=== PATIENT | female | born 1965 | race Caucasian/White ===

== ENCOUNTER 2017-10-04 14:49 | Emergency (ER) | payer OTHER ==
[2012-03-05 11:37] VITALS: BP 168/75
--- NOTE | 2017-10-04 16:04 | ERPHSYRPT ---
- History of Present Illness Time Seen by Provider: 10/04/17 16:04 Source: patient, family Exam Limitations: no limitations Patient Subjective Stated Complaint: cough for three weeks and shortness of breath for one week. Triage Nursing Assessment: to room per self. skin w/d, color normal, resp slightly labored. occasional dry cough noted. diminshed breath sounds right posterior base. Physician History: The patient is a 52-year-old female with her complaining of a cough for at least 3 weeks and now shortness of breath for the last week. She has been taking Ventolin without relief. She is a smoker but has not smoked cigarettes in the last 2 days. She has not seen a doctor yet but is tired of being sick. She denies fever. She is tired. Her past medical history is significant for COPD. Timing/Duration: week(s) (3), gradual onset, worse Cough Quality/Degree: moderate Possible Cause: occasional episodes, smoke exposure Modifying Factors: Improves With: albuterol inhaler Associated Symptoms: cough, shortness of breath Allergies/Adverse Reactions: cyclobenzaprine [From Flexeril] Allergy (Verified 10/04/17 15:06) gabapentin [From Neurontin] Allergy (Verified 10/04/17 15:06) tramadol [From Ultram] Allergy (Verified 10/04/17 15:06) Home Medications: HydrALAzine HCL 25 MG TAB [Apresoline 25 MG TABLET] 50 mg PO TID 08/07/16 [History] Hx Tetanus, Diphtheria Vaccination/Date Given: No Hx Influenza Vaccination/Date Given: No Hx Pneumococcal Vaccination/Date Given: No Immunizations Up to Date: No - Review of Systems Constitutional: No Fever, No Chills Eyes: No Symptoms Ears, Nose, & Throat: No Symptoms Respiratory: Cough, Dyspnea on Exertion (LU) Cardiac: No Chest Pain, No Edema, No Syncope Abdominal/Gastrointestinal: No Abdominal Pain, No Nausea, No Vomiting, No Diarrhea Genitourinary Symptoms: No Dysuria Musculoskeletal: No Back Pain, No Neck Pain Skin: No Rash Neurological: No Dizziness, No Focal Weakness, No Sensory Changes Psychological: No Symptoms Endocrine: No Symptoms Hematologic/Lymphatic: No Symptoms Immunological/Allergic: No Symptoms All Other Systems: Reviewed and Negative - Past Medical History Pertinent Past Medical History: Yes Cardiac History: Hypertension Musculoskeletal History: Arthritis - Past Surgical History Past Surgical History: Yes Gastrointestinal: Cholecystectomy Female Surgical History: Section, Other - Social History Smoking Status: Current every day smoker How long have you smoked: 37 Exposure to second hand smoke: Yes Drug Use: none Patient Lives Alone: No - Female History Hx Now: No - Nursing Vital Signs Nursing Vital Signs: Initial Vital Signs Temperature 98.6 F 10/04/17 14:56 Pulse Rate 91 H 10/04/17 14:56 Respiratory Rate 18 10/04/17 14:56 O2 Sat by Pulse Oximetry 95 10/04/17 14:56 Pain Scale Pain Intensity 6 - Physical Exam General Appearance: no apparent distress, alert Eye Exam: PERRL/EOMI, eyes nml inspection Ears, Nose, Throat Exam: normal ENT inspection, TMs normal, pharynx normal, moist mucous membranes Neck Exam: normal inspection, non-tender, supple, full range of motion Respiratory Exam: diminished breath sounds, prolonged expirations, wheezing ( mild) Cardiovascular Exam: regular rate/rhythm, normal heart sounds Gastrointestinal/Abdomen Exam: soft, No tenderness Pelvic Exam: not done Rectal Exam: not done Back Exam: normal inspection, No CVA tenderness, No vertebral tenderness Extremity Exam: normal inspection, normal range of motion Neurologic Exam: alert, oriented x 3, cooperative, normal mood/affect, sensation nml, No motor deficits Skin Exam: normal color, warm, dry, No rash Lymphatic Exam: No adenopathy SpO2 Interpretation: normal SpO2: 95 Oxygen Delivery: Room Air - Radiology Exams Chest X-ray Interpretation: Interpreted by me, Infiltrates (focal infiltrate in right mid lung and in posterior sulcus on lateral view.) Ordered Tests: Active Orders 24 hr Category Date Time Status CHEST 2 VIEWS (PA AND LAT) Stat Exams 10/04/17 17:35 Taken Respiratory Nebulizer STAT RT 10/04/17 16:07 Completed Transfer Order Routine Transfer 10/04/17 Ordered Medication Summary Discontinued Medications Generic Name Dose Route Start Last Admin Trade Name Freq PRN Reason Stop Dose Admin Albuterol/Ipratropium 3 ml 10/04/17 16:06 10/04/17 16:20 Duoneb 0.5-3 Mg/3 Ml Neb IH 10/04/17 16:07 3 ml STAT ONE Administration Albuterol/Ipratropium Confirm 10/04/17 16:17 Duoneb 0.5-3 Mg/3 Ml Neb Administered 10/04/17 16:18 Dose 3 ml IH .STK-MED ONE Ceftriaxone Sodium 1,000 mg 10/04/17 16:05 10/04/17 16:33 Rocephin 1000 Mg Inj IM 10/04/17 16:06 1,000 mg STAT ONE Administration Ceftriaxone Sodium Confirm 10/04/17 16:28 Rocephin 1000 Mg Inj Administered 10/04/17 16:29 Dose 1,000 mg .ROUTE .STK-MED ONE Dexamethasone Sodium Phosphate 10 mg 10/04/17 16:06 10/04/17 16:33 Decadron 10mg Inj. IM 10/04/17 16:07 10 mg STAT ONE Administration Dexamethasone Sodium Phosphate Confirm 10/04/17 16:29 Decadron 10mg Inj. Administered 10/04/17 16:30 Dose 10 mg .ROUTE .STK-MED ONE Lidocaine HCl Confirm 10/04/17 16:29 Xylocaine 1% Hcl 20 Ml Mdv Administered 10/04/17 16:30 Dose 3 ml .ROUTE .STK-MED ONE - Progress Progress: improved Counseled pt/family regarding: lab results, diagnosis, need for follow-up, rad results - Departure Time of Disposition: 17:49 Departure Disposition: Home Clinical Impression: Pneumonia Condition: Stable Critical Care Time: No Referrals: TRACY PRESLEY [Primary Care Provider] - Additional Instructions: You have focal pneumonia in your right mid lung and in the lower part of your lungs. You were given a DuoNeb treatment, Rocephin 1 g by IM, and Decadron 10 mg by IM in the ER. Continue with azithromycin 500 mg today followed by 250 mg for 4 more days also take prednisone 60 mg daily for 5 days.. Follow-up with your primary care doctor in 1-2 days. Prescriptions: Azithromycin 250 mg [Zithromax 250 MG TABLET] 250 mg PO ZPACK #6 tablet Prednisone 20 mg [Deltasone 20 mg] 3 tab PO DAILY #15 tablet
[2017-10-04] MEDS ORDERED: DUONEB 0.5-3 MG/3 ml Neb IH ONE (16:17)
[2017-10-04] MEDS: DUONEB 0.5-3 MG/3 ml Neb IH ONE (16:20)
[2017-10-04] MEDS ORDERED: Rocephin 1000 MG INJ ONE (16:28)
[2017-10-04] MEDS ORDERED: XYLOCAINE 1% HCL 20 ML MDV ONE (16:29)
[2017-10-04] MEDS ORDERED: DECADRON 10MG INJ. ONE (16:29)
[2017-10-04] MEDS: DECADRON 10MG INJ. IM ONE (16:33)
[2017-10-04] MEDS: Rocephin 1000 MG INJ IM ONE (16:33)
[2017-10-04 17:55] VITALS: BP 220/104; PULSE 95; O2SAT 83
--- NOTE | 2017-10-05 08:41 | XRAY ---
Indication: Cough 1 month. Fever and short of breath. Comparison: None PA/lateral chest hyperinflated with mild left base infiltrate/atelectasis, mild bilateral interstitial edema, and small bibasilar effusions. 3 cm right midlung masslike opacity. Heart is not enlarged. Vascularity normal. Bony thorax intact. Impression: 1. Left base infiltrate/atelectasis. Correlate clinically. 2. Mild interstitial edema and small bibasilar effusions without cardiomegaly. 3. Right midlung masslike opacity. CT chest may yield further information. Comment: Case was discussed with interpreting ER clinician Dr. Turcios at 0835 hrs. on October 05, 2017.
== END 2017-10-04 18:14 | disposition home or self-care (01) ==
LOC: ED 14:49
DX: J18.9 Pneumonia, unspecified organism (principal); I10 Essential (primary) hypertension; J44.9 Chronic obstructive pulmonary disease, unspecified; M19.90 Unspecified osteoarthritis, unspecified site; Z72.0 Tobacco use
CPT/HCPCS: 71046; 94640; 96372; 99284; J0696; J1100; A9270-GY

== ENCOUNTER 2017-10-11 11:29 | Observation (INO) | payer SELFPAY ==
[2017-10-11] MEDS ORDERED: Lasix 40 MG/4 ML IV ONE (11:56)
--- NOTE | 2017-10-11 11:57 | ERPHSYRPT ---
- History of Present Illness Time Seen by Provider: 10/11/17 11:51 Source: patient Exam Limitations: no limitations Patient Subjective Stated Complaint: states she was seen and treated in ER last week for pneumonia nad now shes very swollen and short of breath and quick care sent her back down to us Triage Nursing Assessment: pt is alert and oreitnedx3, lung sounds diminished, pt has 2+ edema bilateral lower legs and says her weight has increased 20 lbs. skin warm dry and intact, swelling in cheeks and face. Physician History: The patient is a 52-year-old female with her complaining of increasing shortness of breath and swelling in her lower legs for the past 3 or 4 days. She is unable to sleep flat on her back because of shortness of breath. I saw this patient on 10/04/17 for shortness of breath. At the last visit the patient was found to have pneumonia. She was treated with Rocephin and azithromycin. Because of her COPD the patient was also given prednisone 60 mg for 5 days. She states she was back to her normal self after 3 days or so of the treatment. Now she states that she has gained maybe up to 20 pounds of weight recently. Her past medical history is significant for COPD and pneumonia. Timing/Duration: day(s) (3), gradual onset, worse Activities at Onset: none Severity of Dyspnea-Max: moderate Severity of Dyspnea-Current: moderate Possible Cause: occasional episodes, smoke exposure Modifying Factors: Improves With: other (lying flat in bed makes it worse.) Associated Symptoms: ankle swelling Allergies/Adverse Reactions: cyclobenzaprine [From Flexeril] Allergy (Verified 10/04/17 15:06) gabapentin [From Neurontin] Allergy (Verified 10/04/17 15:06) tramadol [From Ultram] Allergy (Verified 10/04/17 15:06) Home Medications: HydrALAzine HCL 25 MG TAB [Apresoline 25 MG TABLET] 50 mg PO TID 08/07/16 [History] Hx Tetanus, Diphtheria Vaccination/Date Given: Yes Hx Influenza Vaccination/Date Given: No Hx Pneumococcal Vaccination/Date Given: No Immunizations Up to Date: Yes - Review of Systems Constitutional: No Fever, No Chills Eyes: No Symptoms Ears, Nose, & Throat: No Symptoms Respiratory: Dyspnea, Dyspnea on Exertion (LU), No Cough Cardiac: No Chest Pain, No Edema, No Syncope Abdominal/Gastrointestinal: No Abdominal Pain, No Nausea, No Vomiting, No Diarrhea Genitourinary Symptoms: No Dysuria Musculoskeletal: No Back Pain, No Neck Pain Skin: No Rash Neurological: No Dizziness, No Focal Weakness, No Sensory Changes Psychological: No Symptoms Endocrine: No Symptoms Hematologic/Lymphatic: No Symptoms Immunological/Allergic: No Symptoms All Other Systems: Reviewed and Negative - Past Medical History Pertinent Past Medical History: Yes Cardiac History: Hypertension Musculoskeletal History: Arthritis - Past Surgical History Past Surgical History: Yes Gastrointestinal: Cholecystectomy Female Surgical History: Section, Other - Social History Smoking Status: Current every day smoker How long have you smoked: 37 Exposure to second hand smoke: Yes Drug Use: none Patient Lives Alone: No - Female History Hx Now: No - Nursing Vital Signs Nursing Vital Signs: Initial Vital Signs Temperature 97.9 F 10/11/17 11:29 Pulse Rate 61 10/11/17 11:29 Respiratory Rate 20 10/11/17 11:29 Blood Pressure 233/103 10/11/17 11:29 O2 Sat by Pulse Oximetry 99 10/11/17 11:29 Pain Scale Pain Intensity 0 - Physical Exam General Appearance: mild distress Eye Exam: PERRL/EOMI Ears, Nose, Throat Exam: hearing grossly normal Neck Exam: normal inspection, supple Respiratory Exam: normal breath sounds Cardiovascular/Chest Exam: normal heart sounds, regular rate/rhythm Abdominal/Gastrointestinal Exam: soft, No tenderness, No distention, No mass Rectal Exam: not done Extremity Exam: pedal edema (moderate edema from ankles to knee bilaterally.) Neurologic Exam: alert, oriented x 3, cooperative, room designer II-XII nml as tested, sensation nml, No motor deficits Skin Exam: normal color, warm, No dry SpO2 Interpretation: normal SpO2: 96 Oxygen Delivery: Room Air - Course EKG Interpreted by Me: RATE, Sinus Rhythm, NORMAL AXIS, NORMAL INTERVALS, Other (likely LV hypertrophy,) - CT Exams Chest CT Interpretation: Tele-radiologist Report, Other (irreglar spiculated calcified in monor fissure worrsisome for malignancy. Moderaated bilateral pleural effusions. Per Dr Arredondo.) Ordered Tests: Active Orders 24 hr Category Date Time Status EKG-ER Only STAT Care 10/11/17 11:56 Active IV Insertion STAT Care 10/11/17 11:56 Active Pulse Oximetry (ED) STAT Care 10/11/17 11:56 Active CHEST WITHOUT CONTRAST [CT] Stat Exams 10/11/17 11:56 Completed CBC W DIFF Stat Lab 10/11/17 12:05 Completed CMP Stat Lab 10/11/17 12:05 Completed Lactic Acid Stat Lab 10/11/17 12:14 Completed Manual Differential NC Stat Lab 10/11/17 12:05 Completed NT PRO BNP Stat Lab 10/11/17 12:05 Completed TROPONIN Q3H Lab 10/11/17 12:10 Completed TROPONIN Q3H Lab 10/11/17 15:00 Ordered TROPONIN Q3H Lab 10/11/17 18:00 Ordered TROPONIN Q3H Lab 10/11/17 21:00 Ordered TROPONIN Q3H Lab 10/12/17 00:00 Ordered Medication Summary Discontinued Medications Generic Name Dose Route Start Last Admin Trade Name Freq PRN Reason Stop Dose Admin Furosemide 40 mg 10/11/17 11:56 10/11/17 12:33 Lasix 40 Mg/4 Ml IV 10/11/17 11:57 40 mg STAT ONE Administration Furosemide Confirm 10/11/17 12:16 Lasix 40 Mg/4 Ml Administered 10/11/17 12:17 Dose 40 mg .ROUTE .STK-MED ONE Metoprolol Tartrate 5 mg 10/11/17 13:59 10/11/17 14:03 Lopressor 5 Mg/5 Ml Injection IV 10/11/17 14:00 5 mg STAT ONE Administration Metoprolol Tartrate Confirm 10/11/17 14:02 Lopressor 5 Mg/5 Ml Injection Administered 10/11/17 14:03 Dose 5 mg IV .STK-MED ONE Potassium Chloride 40 meq 10/11/17 12:47 10/11/17 13:15 Klor Con 10 Meq PO 10/11/17 12:48 40 meq STAT ONE Administration Potassium Chloride Confirm 10/11/17 13:14 Klor Con 10 Meq Administered 10/11/17 13:15 Dose 40 meq PO .STK-MED ONE Lab/Rad Data: Laboratory Result Diagrams 10/11/17 12:05 10/11/17 12:05 Laboratory Results 10/11/17 10/11/17 10/11/17 Range/Units 12:14 12:10 12:05 WBC (4.0-10.5) K/mm3 RBC (4.1-5.4) M/mm3 Hgb (12.0-16.0) gm/dl Hct (35-47) % MCV (78-100) fl MCH (26-32) pg MCHC (32-36) g/dl RDW (11.5-14.0) % Plt Count (150-450) K/mm3 MPV (6-9.5) fl Absolute Granulocytes (1.4-6.9) Sodium 139 (137-145) mmol/L Potassium 3.0 L (3.5-5.1) mmol/L Chloride 101 (98-107) mmol/L Carbon Dioxide 29 (22-30) mmol/L Anion Gap 12.7 (5-15) MEQ/L BUN 28 H (7-17) mg/dL Creatinine 1.57 H (0.52-1.04) mg/dL Estimated GFR 36.5 ML/MIN Glucose 92 (74-106) mg/dL Lactic Acid 1.4 (0.4-2.0) Calcium 9.1 (8.4-10.2) mg/dL Total Bilirubin 0.60 (0.2-1.3) mg/dL AST 28 (14-36) U/L ALT 46 H (0-35) U/L Alkaline Phosphatase 93 (38-126) U/L Troponin I 0.053 H* (0.000-0.034) ng/mL NT-Pro-B Natriuret Pep 95012 H (0-900) pg/mL Serum Total Protein 7.1 (6.3-8.2) g/dL Albumin 4.0 (3.5-5.0) g/dL 18 Range/Units 12:05 WBC 15.8 H (4.0-10.5) K/mm3 RBC 3.72 L (4.1-5.4) M/mm3 Hgb 12.9 (12.0-16.0) gm/dl Hct 39.4 (35-47) % MCV 105.9 H (78-100) fl MCH 34.6 H (26-32) pg MCHC 32.7 (32-36) g/dl RDW 14.2 H (11.5-14.0) % Plt Count 391 (150-450) K/mm3 MPV 10.4 H (6-9.5) fl Absolute Granulocytes 12.33 H (1.4-6.9) Sodium (137-145) mmol/L Potassium (3.5-5.1) mmol/L Chloride (98-107) mmol/L Carbon Dioxide (22-30) mmol/L Anion Gap (5-15) MEQ/L BUN (7-17) mg/dL Creatinine (0.52-1.04) mg/dL Estimated GFR ML/MIN Glucose (74-106) mg/dL Lactic Acid (0.4-2.0) Calcium (8.4-10.2) mg/dL Total Bilirubin (0.2-1.3) mg/dL AST (14-36) U/L ALT (0-35) U/L Alkaline Phosphatase (38-126) U/L Troponin I (0.000-0.034) ng/mL NT-Pro-B Natriuret Pep (0-900) pg/mL Serum Total Protein (6.3-8.2) g/dL Albumin (3.5-5.0) g/dL - Progress Progress: improved Air Movement: good Progress Note: 10/11/17 12:[address] today. Saw possible mass in right mid lung in CXR. Blood Culture(s) Obtained: No Antibiotics given: No Discussed with : Alek Will see patient in: hospital (observation) Counseled pt/family regarding: lab results, diagnosis, need for follow-up, rad results - Departure Time of Disposition: 14:31 Departure Disposition: Observation (Per Dr Gaston for Dr Emeli Presley.) Clinical Impression: CHF (congestive heart failure), Hypokalemia, Hypertension, Renal failure, Lung mass, Elevated troponin Condition: Stable Critical Care Time: No Referrals: TRACY PRESLEY [Primary Care Provider] - Instructions: Heart Failure
[2017-10-11] MEDS ORDERED: Lasix 40 MG/4 ML ONE (12:16)
[2017-10-11 12:25] LABS: Granulocyte Absolute (ANC) 12.33 (1.4-6.9); Hematocrit 39.4 % (35-47); Hemoglobin 12.9 gm/dl (12.0-16.0); Mean Cell Volume 105.9 fl (78-100); Mean Corpuscular Hgb Concent. 32.7 g/dl (32-36); Mean Platelet Volume 10.4 fl (6-9.5); Platelet Count 391 K/mm3 (150-450); Red Blood Count 3.72 M/mm3 (4.1-5.4); Red Cell Distribution Width 14.2 % (11.5-14.0); White Blood Count 15.8 K/mm3 (4.0-10.5)
[2017-10-11 12:39] LABS: ANION GAP 12.7 MEQ/L (5-15); BILIRUBIN,TOTAL 0.6 mg/dL (0.2-1.3); Calcium 9.1 mg/dL (8.4-10.2); Creatinine 1 1.57 mg/dL (0.52-1.04); Total Protein 7.1 g/dL (6.3-8.2)
[2017-10-11 12:43] LABS: Mean Corpuscular Hemoglobin 34.6 pg (26-32)
[2017-10-11] MEDS ORDERED: Klor Con 10 MEQ PO ONE ×2 (12:47→13:14)
--- NOTE | 2017-10-11 13:04 | XRAY ---
Indication: Short of breath 1.5 weeks. Chest heaviness. Abnormal chest radiograph October 04, 2017. Multiple contiguous axial images obtained through the chest without contrast as ordered. Comparison: October 04, 2017. Lungs inflated with mild diffuse pulmonary emphysema. There is irregular calcified mass in the minor fissure measuring 2.6 x 2.5 x 1.9 cm with spiculated margins. This corresponds to the chest radiograph finding and worrisome for malignancy. Subtle lingular reticular nodular opacities. Moderate bilateral pleural effusions with moderate bibasilar compressive atelectasis, right greater than left. Heart is not enlarged. A few slightly prominent mediastinal lymph nodes, largest AP window measuring 1.2 x 2.0 cm. [place] subcarinal and smaller mediastinal calcified lymph nodes. Bony thorax intact with minimal degenerative changes throughout the spine. Limited upper abdomen demonstrates calcified splenic granuloma. Impression: 1. Irregular spiculated calcified mass in the minor fissure as detailed corresponding to the recent chest radiograph finding worrisome for primary versus metastatic malignancy. Slightly prominent mediastinal nodes may or may not be related. PET CT may yield further information. 2. Indeterminate moderate bilateral pleural effusions without cardiomegaly. Consider diagnostic thoracentesis. 3. Evidence for old granulomatous disease. CTDI 16.92
[2017-10-11] MEDS ORDERED: LOPRESSOR 5 MG/5 ML INJECTION IV ONE ×2 (13:59→14:02)
[2017-10-11 15:00] LABS: Appearance CLEAR (CLEAR); Specific Gravity 1.005 (1.005-1.025)
[2017-10-11 15:01] LABS: Bacteria RARE /HPF (NEGATIVE); Bilirubin NEGATIVE (NEGATIVE); Blood NEGATIVE Ery/ul (0-5); Epithelial Cells RARE /HPF (FEW); Glucose NEGATIVE (NEGATIVE); Ketones NEGATIVE (NEGATIVE); Leukocyte Esterase NEGATIVE (NEGATIVE); Nitrite NEGATIVE (NEGATIVE); Protein,Urine Dip 50 (Negative); RBC 0-2 /HPF (0-2); Urobilinogen NORMAL mg/dL (0-1)
[2017-10-11] MEDS ORDERED: TYLENOL 325 MG PO PRN (15:18)
[2017-10-11] MEDS ORDERED: Zofran 4 MG/2 ML VIAL IV PRN (15:18)
[2017-10-11 16:07] LABS: ANISOCYTOSIS 1+; BAND 1 % (0.0-2.0); Eosinophil 2 % (0.00-3.0); Lymphocytes 23 % (24-44); Monocyte 7 % (0.0-12.0); Neutrophils 67 % (36.0-66.0); Platelet Estimate NORMAL (NORMAL); Total Cells Counted 100
[2017-10-11] MEDS: Lasix 40 MG/4 ML IV SCH (16:44)
[2017-10-11] MEDS: ENOXAPARIN SODIUM SQ SCH (16:44)
[2017-10-11] MEDS: Lotensin 10 MG PO SCH (16:45)
[2017-10-11] MEDS: Apresoline 25 MG TABLET PO SCH ×2 (16:45→22:02)
[2017-10-12 04:22] LABS: Hematocrit 33.2 % (35-47); Mean Cell Volume 105.4 fl (78-100); Mean Corpuscular Hemoglobin 34.9 pg (26-32); Mean Corpuscular Hgb Concent. 33.1 g/dl (32-36); Mean Platelet Volume 10.5 fl (6-9.5); Platelet Count 346 K/mm3 (150-450); Red Blood Count 3.15 M/mm3 (4.1-5.4); Red Cell Distribution Width 13.9 % (11.5-14.0); White Blood Count 11.4 K/mm3 (4.0-10.5)
--- NOTE | 2017-10-12 08:30 | HP ---
CHIEF COMPLAINT: Shortness of breath and leg swelling. HISTORY OF PRESENT ILLNESS: The patient is a 52 y/o WF who reports that she has been having problems with chest heaviness over the past several weeks. She was seen in the Emergency Room last week and treated for bronchitis with steroid treatment and Zithromax and Rocephin. She returned to the Emergency Room today with complaints of increasing shortness of breath and leg swelling. The patient's evaluation in the Emergency Room was concerning for a chest x-ray and then CT scan showing a spiculated mass. The patient is also known to be quite hypertensive. She reports she has last seen Dr. Dyson about 6 months ago and has not been taking her hydralazine on a regular basis. The patient's medical history is otherwise significant for smoking history. She has no other listed medical problems. HOME MEDICATIONS: ALLERGIES: SHE HAS ALLERGY LISTED TO TRAMADOL, CYCLOBENZAPRINE, AND GABAPENTIN. PHYSICAL EXAMINATION: Reveals a well-nourished, well-developed, 52 y/o WF in mild to moderate distress due to the dyspnea at rest. Her vital signs in the Emergency Room showed a temperature of 97.9, pulse 61, respiratory rate 20, BP 233/103, O2 saturation 99% on room air. HEENT: Normocephalic and atraumatic. Pupils equal, round, and reactive to light. Extraocular movements intact. Oropharynx is pink and moist. NECK: Supple without lymphadenopathy, thyromegaly, or obvious JVD. CHEST: Reveals crackles in both bases and otherwise is clear with good air movement. HEART: Currently regular with occasional skipped beats. No murmurs, rubs, or gallops are heard. ABDOMEN: Soft. No palpable masses. EXTREMITIES: Reveal 3-4+ edema over the shins bilaterally. NEURO: The patient is A&O X 3 with no focal deficits noted. LABORATORY DATA: Laboratory studies reveal the CBC to show a WBC of 15,800 and Hgb of 12.9 and platelet count of 391,000. There are 67 polys and 1 band. Troponin was 0.053 and a repeat 3 hours later showed 0.060. UA was normal with specific gravity of 1.005. Metabolic panel showed a glucose of 92, BUN 28, creatinine slightly elevated at 1.57, potassium slightly low at 3.0. Liver enzymes are normal. NT Pro BNP was 16,300. The patient has had the lactic acid at 1.4. Her EKG shows sinus arrhythmia with no significant ST or T wave changes noted and fairly normal progression all the way across precordial lead. It does show evidence of left ventricular hypertrophy. CT scan of her chest showed irregular, spiculated, calcified mass concerning for malignancy. ASSESSMENT: 1. 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 The patient has been admitted to the medicine [facility] and placed on Lopressor, Lotensin, Lovenox, and Lasix. Cardiology consultation will be obtained. The patient will receive and echocardiogram in the morning. 2. THE PATIENT WITH SPICULATED LUNG MASS CONCERNING FOR MALIGNANCY. The patient will have further evaluation as an outpatient once we get the cardiac status under better control.
[2017-10-12] MEDS: Apresoline 25 MG TABLET PO SCH (08:43)
[2017-10-12] MEDS: ENOXAPARIN SODIUM SQ SCH (08:43)
[2017-10-12] MEDS: Lasix 40 MG/4 ML IV SCH (08:43)
[2017-10-12] MEDS: Lotensin 10 MG PO SCH (08:44)
[2017-10-12] MEDS ORDERED: BABY ASPIRIN 81 MG CHEW PO ONE (08:52)
[2017-10-12] MEDS ORDERED: Lopressor 50 MG PO SCH (10:00)
[2017-10-12 10:02] LABS: ALBUMIN 2.7 g/dL (3.5-5.0); ANION GAP 11.1 MEQ/L (5-15); BILIRUBIN,TOTAL 0.4 mg/dL (0.2-1.3); Calcium 7.9 mg/dL (8.4-10.2); Creatinine 1 1.75 mg/dL (0.52-1.04); Potassium 3.1 mmol/L (3.5-5.1); Total Protein 5.2 g/dL (6.3-8.2)
[2017-10-12] MEDS ORDERED: Klor Con 10 MEQ PO ONE (10:24)
[2017-10-12 11:33] VITALS: BP 173/83; PULSE 53; O2SAT 97
--- NOTE | 2017-10-12 18:22 | PCM.DS ---
Discharge Summary Date of Admission: 10/11/17 15:05 Date of Discharge: 10/12/17 Admitting Physician: JASPAL GARCIA Consults: Consults on Case 10/11/17 16:19 Consult Cardiology ROUTINE Primary Care Provider: TRACY PRESLEY Allergies Allergies cyclobenzaprine [From Flexeril] Allergy (Verified 10/04/17 15:06) gabapentin [From Neurontin] Allergy (Verified 10/04/17 15:06) tramadol [From Ultram] Allergy (Verified 10/04/17 15:06) Hospital Summary - Hospital Course Hospital Course: She has history of hypertension and smoking and had 1 month of weight gain increased cough shortness of breath and orthopnea. She presented to [facility] who sent her to ED. She was found to have pleural effusions swelling, very elevated bp, and a suspicious 2 cm spiculated lung mass. Her troponins were elevated but not having chest pain per report at the time. She was given IV lasix and had 4L output overnight she is feeling better tolerating room air but still has a heaviness on her chest and shortness of breath when she moves around the room. The troponin trended up this am. Dr. Patel was consulted by Dr. Garcia on admission however Dr. Patel is unavailable for consults at [place] due to a vacation. The bp improved from 230 systolic to 180 systolic with hydralazine and beta iraj and arb. Discussed with Dr. Melo hospitalist at [facility] who accepted her for transfer for the NSTEMI and new onset acute heart failure and discussed with Dr. Núñez cardiology who was consult on the case and agrees with need for transfer for the NSTEMI, renal failure, acute heart failure. She had echo done this am and results pending. Aspirin was given this am as well as 40 mEq of po potassium after am labs returned with hypokalemia. - Vitals & Intake/Output Vital Signs: Vital Signs Temperature 98 F 10/12/17 11:32 Pulse Rate 53 L 10/12/17 11:32 Respiratory Rate 18 10/12/17 11:53 Blood Pressure 173/83 10/12/17 11:32 O2 Sat by Pulse Oximetry 97 10/12/17 11:32 Intake & Output: Intake & Output 10/10/17 10/11/17 10/12/17 10/13/17 11:59 11:59 11:59 11:59 Intake Total 600 Output Total 4300 400 Balance -3700 -400 Weight 89 kg - Lab Result Diagrams: 10/12/17 04:05 10/12/17 04:00 Lab Results-Last 24 Hrs: Lab Results-Last 24 Hours 10/11/17 10/12/17 10/12/17 Range/Units 17:35 04:00 04:05 WBC 11.4 H (4.0-10.5) K/mm3 RBC 3.15 L (4.1-5.4) M/mm3 Hgb 11.0 L (12.0-16.0) gm/dl Hct 33.2 L (35-47) % MCV 105.4 H (78-100) fl MCH 34.9 H (26-32) pg MCHC 33.1 (32-36) g/dl RDW 13.9 (11.5-14.0) % Plt Count 346 (150-450) K/mm3 MPV 10.5 H (6-9.5) fl Sodium 136 L (137-145) mmol/L Potassium 3.1 L (3.5-5.1) mmol/L Chloride 101 (98-107) mmol/L Carbon Dioxide 27 (22-30) mmol/L Anion Gap 11.1 (5-15) MEQ/L BUN 35 H (7-17) mg/dL Creatinine 1.75 H (0.52-1.04) mg/dL Estimated GFR 32.2 ML/MIN Glucose 96 (74-106) mg/dL Calcium 7.9 L (8.4-10.2) mg/dL Total Bilirubin 0.40 (0.2-1.3) mg/dL AST 23 (14-36) U/L ALT 27 (0-35) U/L Alkaline Phosphatase 68 (38-126) U/L Troponin I 0.065 H* (0.000-0.034) ng/mL NT-Pro-B Natriuret Pep (0-900) pg/mL Serum Total Protein 5.2 L (6.3-8.2) g/dL Albumin 2.7 L (3.5-5.0) g/dL 10/12/17 10/12/17 Range/Units 04:05 04:05 WBC (4.0-10.5) K/mm3 RBC (4.1-5.4) M/mm3 Hgb (12.0-16.0) gm/dl Hct (35-47) % MCV (78-100) fl MCH (26-32) pg MCHC (32-36) g/dl RDW (11.5-14.0) % Plt Count (150-450) K/mm3 MPV (6-9.5) fl Sodium (137-145) mmol/L Potassium (3.5-5.1) mmol/L Chloride (98-107) mmol/L Carbon Dioxide (22-30) mmol/L Anion Gap (5-15) MEQ/L BUN (7-17) mg/dL Creatinine (0.52-1.04) mg/dL Estimated GFR ML/MIN Glucose (74-106) mg/dL Calcium (8.4-10.2) mg/dL Total Bilirubin (0.2-1.3) mg/dL AST (14-36) U/L ALT (0-35) U/L Alkaline Phosphatase (38-126) U/L Troponin I 0.111 H* (0.000-0.034) ng/mL NT-Pro-B Natriuret Pep 49337 H (0-900) pg/mL Serum Total Protein (6.3-8.2) g/dL Albumin (3.5-5.0) g/dL - Radiology Exams Ordered Rad Exams-Entire Visit: Radiology Procedures Category Date Time Status ECHO W/2D AND DOPPLER [US] Routine Exams 10/12/17 08:00 Taken - Procedures and Test Procedures and Tests throughout Hospitalization: Therapy Orders & Screens 10/11/17 15:49 Smoking Cessation Education ONCE Comment: Diagnosis: renal failure. hypokalemia. HTN. increased CTNI. Smoking Status: Current every day smoker How long have you smoked: 37 Approximately how many cigarettes per day: one pack every 2 days. Do you dip or chew tobacco: No Discharge Exam General Appearance: no apparent distress, alert Neurologic Exam: alert, oriented x 3, cooperative, normal mood/affect, nml cerebellar function, sensation nml, No motor deficits Skin Exam: normal color, warm, dry Eye Exam: PERRL, EOMI, eyes nml inspection Ears, Nose, Throat Exam: normal ENT inspection, pharynx normal, moist mucous membranes Neck Exam: normal inspection, non-tender, supple, full range of motion Respiratory Exam: normal breath sounds, crackles/rales, No respiratory distress Cardiovascular Exam: regular rate/rhythm, normal heart sounds Gastrointestinal/Abdomen Exam: soft, No tenderness, No mass Extremity Exam: normal inspection, normal range of motion, pedal edema Back Exam: normal inspection, normal range of motion, No CVA tenderness, No vertebral tenderness Pelvic Exam: deferred Rectal Exam: deferred Final Diagnosis/Problem List - Final Discharge Diagnosis/Problem (1) NSTEMI (non-ST elevated myocardial infarction) Status: Acute (2) CHF (congestive heart failure) Status: Acute Assessment & Plan: acute unspecified echo results pending (3) Hypertensive emergency Status: Acute (4) Lung mass Status: Acute (5) Renal failure Status: Acute (6) Tobacco abuse Status: Chronic (7) Anemia Status: Acute (8) Hypokalemia Status: Acute - Discharge Discharge Date: 10/12/17 Disposition: DC TO [facility] Condition: Stable Prescriptions: No Action HydrALAzine HCL 25 MG TAB [Apresoline 25 MG TABLET] 50 mg PO TID Forms: Transfer Record [employer]
[2017-10-13] MEDS ORDERED: Ecotrin 325 MG PO SCH (10:00)
--- NOTE | 2017-10-14 08:21 | ECHO ---
DATE: 10/12/17 INDICATION: Chest pain. The M-mode, 2D, and Doppler echocardiogram including color flow Doppler shows normal contractility of the left ventricle with an ejection fraction calculated to be 59%. The left ventricle was normal in size with the dimension of 5.3 cm. The septal wall thickness is increased at 1.3 cm. The left ventricular posterior wall thickness is increased at 1.4 cm. There is no apical thrombus present. The right ventricle appears to be normal in size and function. The left atrium is normal at 3.0 cm. The interatrial septum is intact. The right atrium is normal. The aortic valve opens well. There is mitral valve leaflet thickening with mild mitral regurgitation present. There is mild tricuspid regurgitation with a normal right ventricular systolic pressure of 22 mm Hg. The pulmonic valve was not well visualized. The aortic root is normal at 2.9 cm. There is no pericardial effusion present. IMPRESSION: 1. NORMAL CONTRACTILITY OF THE LEFT VENTRICLE. 2. MILD CONCENTRIC LEFT VENTRICULAR HYPERTROPHY. 3. MILD TRICUSPID REGURGITATION. 4. MILD MITRAL REGURGITATION. RIGHT VENTRICULAR SYSTOLIC PRESSURE IS NORMAL.
== END 2017-10-12 12:15 | disposition home or self-care (01) ==
LOC: ED 11:29 → MED SURG 15:05
PROVIDERS: ADMIT Family Medicine; ATTEND Family Medicine
DX: I50.9 Heart failure, unspecified (principal); I10 Essential (primary) hypertension; I51.7 Cardiomegaly; R91.8 Other nonspecific abnormal finding of lung field
CPT/HCPCS: 36000; 36415; 71250; 80053; 81000; 83605; 83880; 84484; 85025; 85027; 93005; 93268; 93306; 94760; 94762; 96374; 96375; 99285; J1650; J1940; A9270-GY; G0378

== ENCOUNTER 2018-05-02 09:41 | Inpatient (IN) | payer SELFPAY ==
--- NOTE | 2018-05-02 10:18 | ERPHSYRPT ---
- History of Present Illness Time Seen by Provider: 05/02/18 10:07 Source: patient Exam Limitations: no limitations Patient Subjective Stated Complaint: PT states "For the past couple of days I have been short of breath. I have taken my breathing tx more often and hitting my inhaler more." Triage Nursing Assessment: Pt alert and oriented X 3, skin pwd. pt ambulates with an upright steady gait, able to speak in clear full sentences. Pt has no edema noted, lung sounds are clear equal bilat. Physician History: The patient is a 52-year-old female with family complaining of mild cough and shortness of breath this last or for 4 days. She has been taking some breathing treatments which have helped. She has not taken any today. Dr. Valentino Presley was her prior doctor. Now that he is gone she doesn't know who her doctor will be. She has refills for all the medicines but has not obtained them. She states she was feverish and chilled for a few. She denies nausea or vomiting. She continues to smoke. Her past medical history is significant for COPD, CHF, and HTN. Timing/Duration: day(s) (4), gradual onset, improved Cough Quality/Degree: dry cough Possible Cause: occasional episodes, smoke exposure Modifying Factors: Improves With: albuterol inhaler Associated Symptoms: fever, chills, cough, shortness of breath Allergies/Adverse Reactions: cyclobenzaprine [From Flexeril] Allergy (Verified 10/04/17 15:06) gabapentin [From Neurontin] Allergy (Verified 10/04/17 15:06) tramadol [From Ultram] Allergy (Verified 10/04/17 15:06) Home Medications: Amlodipine Besylate/Benazepril [Lotrel 10-20 mg Capsule] 1 each PO DAILY [History] Atorvastatin Calcium [Lipitor] 40 mg PO DAILY 05/02/18 [History] Furosemide 40 mg [Lasix 40 MG] 40 mg PO DAILY 05/02/18 [History] Losartan/Hydrochlorothiazide [Losartan-Hctz 100-25 mg Tab] 1 each PO DAILY 05/02 [History] Metoprolol Tartrate [Lopressor] 50 mg PO DAILY 05/02/18 [History] Potassium Chloride [K-Dur] 10 meq PO DAILY 05/02/18 [History] Hx Tetanus, Diphtheria Vaccination/Date Given: No Hx Influenza Vaccination/Date Given: No Hx Pneumococcal Vaccination/Date Given: No Immunizations Up to Date: Yes - Review of Systems Constitutional: Fever, Chills Eyes: No Symptoms Ears, Nose, & Throat: No Symptoms Respiratory: Cough, Dyspnea Cardiac: No Chest Pain, No Edema, No Syncope Abdominal/Gastrointestinal: No Abdominal Pain, No Nausea, No Vomiting, No Diarrhea Genitourinary Symptoms: No Dysuria Musculoskeletal: No Back Pain, No Neck Pain Skin: No Rash Neurological: No Dizziness, No Focal Weakness, No Sensory Changes Psychological: No Symptoms Endocrine: No Symptoms Hematologic/Lymphatic: No Symptoms Immunological/Allergic: No Symptoms All Other Systems: Reviewed and Negative - Past Medical History Pertinent Past Medical History: Yes Neurological History: Migraines Cardiac History: Hypertension Respiratory History: Bronchitis, COPD, Pneumonia Musculoskeletal History: Arthritis GI Medical History: No Pertinent History History: Renal Disease Psycho-Social History: No Pertinent History Female Reproductive Disorders: No Pertinent History - Past Surgical History Past Surgical History: Yes Neuro Surgical History: No Pertinent History Cardiac: No Pertinent History Respiratory: No Pertinent History Gastrointestinal: Cholecystectomy Genitourinary: No Pertinent History Musculoskeletal: No Pertinent History Female Surgical History: Section, Other - Social History Smoking Status: Current every day smoker How long have you smoked: 30 years Exposure to second hand smoke: Yes Drug Use: none Patient Lives Alone: No - Female History Hx Now: No - Nursing Vital Signs Nursing Vital Signs: Initial Vital Signs Temperature 98.3 F 05/02/18 09:49 Pulse Rate 86 05/02/18 09:49 Respiratory Rate 18 05/02/18 09:49 Blood Pressure 234/107 05/02/18 09:49 O2 Sat by Pulse Oximetry 100 05/02/18 09:49 Pain Scale Pain Intensity 0 - Physical Exam General Appearance: mild distress Eye Exam: PERRL/EOMI, eyes nml inspection Ears, Nose, Throat Exam: normal ENT inspection, TMs normal, pharynx normal, moist mucous membranes Neck Exam: normal inspection, non-tender, supple, full range of motion Respiratory Exam: normal breath sounds, lungs clear, No respiratory distress Cardiovascular Exam: regular rate/rhythm, normal heart sounds Gastrointestinal/Abdomen Exam: soft, No tenderness Pelvic Exam: not done Rectal Exam: not done Back Exam: normal inspection, No CVA tenderness, No vertebral tenderness Extremity Exam: normal inspection, normal range of motion Neurologic Exam: alert, oriented x 3, cooperative, normal mood/affect, sensation nml, No motor deficits Skin Exam: normal color, warm, dry, No rash Lymphatic Exam: No adenopathy SpO2 Interpretation: normal SpO2: 100 Oxygen Delivery: Room Air - Course EKG Interpreted by Me: RATE, Sinus Rhythm, NORMAL AXIS, NORMAL INTERVALS, NORMAL QRS, NORMAL ST-T, Other (no change comp EKG from 10/12/17.) - Radiology Exams Chest X-ray Interpretation: Reviewed by me, Teleradiologist Report ([facility] Dr Arredondo), No Pneumonia, No Infiltrates, Other (stable right midlung spiculated calcified mass ) Ordered Tests: Active Orders 24 hr Category Date Time Status Physician President STAT Care 05/02/18 10:23 Active EKG-ER Only STAT Care 05/02/18 10:22 Active IV Insertion STAT Care 05/02/18 10:22 Active Pulse Oximetry (ED) STAT Care 05/02/18 10:22 Active CHEST 2 VIEWS (PA AND LAT) Stat Exams 05/02/18 10:23 Completed CBC W DIFF Stat Lab 05/02/18 10:26 Completed CMP Stat Lab 05/02/18 10:26 Completed D-DIMER QUANTITATION Stat Lab 05/02/18 10:26 Completed Lactic Acid Stat Lab 05/02/18 10:22 Completed NT PRO BNP Stat Lab 05/02/18 10:26 Completed TROPONIN Q3H Lab 05/02/18 10:26 Completed TROPONIN Q3H Lab 05/02/18 13:30 Ordered TROPONIN Q3H Lab 05/02/18 16:30 Ordered TROPONIN Q3H Lab 05/02/18 19:30 Ordered TROPONIN Q3H Lab 05/02/18 22:30 Ordered Peak Expiratory Flow Rate ONCE RT 05/02/18 10:42 Completed Respiratory Nebulizer STAT RT 05/02/18 10:24 Completed Respiratory Therapy Assessment DAILY RT 05/02/18 10:42 Completed Medication Summary Discontinued Medications Generic Name Dose Route Start Last Admin Trade Name Freq PRN Reason Stop Dose Admin Albuterol/Ipratropium 3 ml 05/02/18 10:22 05/02/18 10:43 Duoneb 0.5-3 Mg/3 Ml Neb IH 05/02/18 10:23 3 ml STAT ONE Administration Albuterol/Ipratropium Confirm 05/02/18 10:41 Duoneb 0.5-3 Mg/3 Ml Neb Administered 05/02/18 10:42 Dose 3 ml IH .STK-MED ONE Lab/Rad Data: Laboratory Result Diagrams 05/02/18 10:26 05/02/18 10:26 Laboratory Results 05/02/18 05/02/18 05/02/18 Range/Units 10:26 10:26 10:26 WBC (4.0-10.5) K/mm3 RBC (4.1-5.4) M/mm3 Hgb (12.0-16.0) gm/dl Hct (35-47) % MCV (78-100) fl MCH (26-32) pg MCHC (32-36) g/dl RDW (11.5-14.0) % Plt Count (150-450) K/mm3 MPV (6-9.5) fl Gran % (36.0-66.0) % Eos # (Auto) (0-0.5) Absolute Lymphs (auto) (1.0-4.6) Absolute Monos (auto) (0.0-1.3) Lymphocytes % (24.0-44.0) % Monocytes % (0.0-12.0) % Eosinophils % (0.00-5.0) % Basophils % (0.0-0.4) % Absolute Granulocytes (1.4-6.9) Basophils # (0-0.4) D-Dimer 1303 H* (215-500) ng/mL Sodium 140 (137-145) mmol/L Potassium 3.3 L (3.5-5.1) mmol/L Chloride 104 (98-107) mmol/L Carbon Dioxide 26 (22-30) mmol/L Anion Gap 13.1 (5-15) MEQ/L BUN 23 H (7-17) mg/dL Creatinine 2.15 H (0.52-1.04) mg/dL Estimated GFR 25.4 ML/MIN Glucose 126 H (74-106) mg/dL Lactic Acid (0.4-2.0) Calcium 8.9 (8.4-10.2) mg/dL Total Bilirubin 0.50 (0.2-1.3) mg/dL AST 25 (14-36) U/L ALT 27 (0-35) U/L Alkaline Phosphatase 126 (38-126) U/L Troponin I 0.141 H* (0.000-0.034) ng/mL NT-Pro-B Natriuret Pep 21927 H (0-900) pg/mL Serum Total Protein 6.9 (6.3-8.2) g/dL Albumin 3.7 (3.5-5.0) g/dL 05/02/18 05/02/18 Range/Units 10:26 10:22 WBC 8.7 (4.0-10.5) K/mm3 RBC 2.98 L (4.1-5.4) M/mm3 Hgb 10.2 L (12.0-16.0) gm/dl Hct 31.4 L (35-47) % MCV 105.4 H (78-100) fl MCH 34.2 H (26-32) pg MCHC 32.5 (32-36) g/dl RDW 12.3 (11.5-14.0) % Plt Count 257 (150-450) K/mm3 MPV 11.3 H (6-9.5) fl Gran % 75.3 H (36.0-66.0) % Eos # (Auto) 0.10 (0-0.5) Absolute Lymphs (auto) 1.39 (1.0-4.6) Absolute Monos (auto) 0.64 (0.0-1.3) Lymphocytes % 16.0 L (24.0-44.0) % Monocytes % 7.4 (0.0-12.0) % Eosinophils % 1.2 (0.00-5.0) % Basophils % 0.1 (0.0-0.4) % Absolute Granulocytes 6.54 (1.4-6.9) Basophils # 0.01 (0-0.4) D-Dimer (215-500) ng/mL Sodium (137-145) mmol/L Potassium (3.5-5.1) mmol/L Chloride (98-107) mmol/L Carbon Dioxide (22-30) mmol/L Anion Gap (5-15) MEQ/L BUN (7-17) mg/dL Creatinine (0.52-1.04) mg/dL Estimated GFR ML/MIN Glucose (74-106) mg/dL Lactic Acid 1.4 (0.4-2.0) Calcium (8.4-10.2) mg/dL Total Bilirubin (0.2-1.3) mg/dL AST (14-36) U/L ALT (0-35) U/L Alkaline Phosphatase (38-126) U/L Troponin I (0.000-0.034) ng/mL NT-Pro-B Natriuret Pep (0-900) pg/mL Serum Total Protein (6.3-8.2) g/dL Albumin (3.5-5.0) g/dL - Progress Progress: improved Air Movement: good Progress Note: 05/02/18 11:26 improved with duo-neb Blood Culture(s) Obtained: No Antibiotics given: No Discussed with : Yeison Will see patient in: hospital (full admit) Counseled pt/family regarding: lab results, diagnosis, rad results - Departure Time of Disposition: 11:26 Departure Disposition: In-patient Admission (per Dr Latham) Clinical Impression: Dyspnea, Elevated d-dimer, Hypokalemia, Elevated troponin, CHF (congestive heart failure), Renal failure, HTN (hypertension) Condition: Stable Critical Care Time: No Referrals: TRACY PRESLEY [Primary Care Provider] - Instructions: Heart Failure
[2018-05-02] MEDS ORDERED: DUONEB 0.5-3 MG/3 ml Neb IH ONE ×2 (10:22→10:41)
[2018-05-02 10:41] LABS: BASOPHIL % 0.1 % (0.0-0.4); Basophil (Absolute #) 0.01 (0-0.4); Eosinophil % 1.2 % (0.00-5.0); Granulocytes % 75.3 % (36.0-66.0); Hematocrit 31.4 % (35-47); Hemoglobin 10.2 gm/dl (12.0-16.0); Lymphocyte (Absolute #) 1.39 (1.0-4.6); Mean Cell Volume 105.4 fl (78-100); Mean Corpuscular Hemoglobin 34.2 pg (26-32); Mean Corpuscular Hgb Concent. 32.5 g/dl (32-36); Mean Platelet Volume 11.3 fl (6-9.5); Monocyte (Absolute #) 0.64 (0.0-1.3); Monocytes % 7.4 % (0.0-12.0); Platelet Count 257 K/mm3 (150-450); Red Blood Count 2.98 M/mm3 (4.1-5.4); Red Cell Distribution Width 12.3 % (11.5-14.0); White Blood Count 8.7 K/mm3 (4.0-10.5)
[2018-05-02 10:52] LABS: ALBUMIN 3.7 g/dL (3.5-5.0); ANION GAP 13.1 MEQ/L (5-15); BILIRUBIN,TOTAL 0.5 mg/dL (0.2-1.3); Calcium 8.9 mg/dL (8.4-10.2); Creatinine 1 2.15 mg/dL (0.52-1.04); Potassium 3.3 mmol/L (3.5-5.1); Total Protein 6.9 g/dL (6.3-8.2)
--- NOTE | 2018-05-02 11:00 | XRAY ---
Indication: Cough and short of breath. Comparison: October 04, 2017. PA/lateral chest remains hyperinflated with stable CT proven (October 11, 2017) right midlung spiculated calcified mass and small bibasilar effusions. Minimal left base fibrosis/scarring. Remaining heart, lungs, and bony thorax unremarkable.
[2018-05-02 11:17] LABS: INFLUENZA A NEGATIVE (NEGATIVE); INFLUENZA B NEGATIVE (NEGATIVE); RESPIRATORY SYNCTIAL VIRUS NEGATIVE (Negative)
[2018-05-02] MEDS ORDERED: Klor Con 10 MEQ PO ONE ×2 (11:28→11:34)
[2018-05-02] MEDS ORDERED: ENOXAPARIN SODIUM SQ ONE ×3 (11:29→11:41)
[2018-05-02] MEDS ORDERED: LOPRESSOR 5 MG/5 ML INJECTION IV ONE ×2 (11:39→11:57)
[2018-05-02] MEDS ORDERED: Sodium Chloride 0.9% 10 ML FLUSH Syringe IV PRN (12:46)
[2018-05-02] MEDS ORDERED: APRESOLINE 20 MG/ML INJ IV ONE (13:39)
[2018-05-02] MEDS: Sodium Chloride 0.9% 10 ML FLUSH Syringe IV SCH ×2 (13:57→21:32)
[2018-05-02] MEDS ORDERED: Lasix 40 MG PO SCH (14:00)
[2018-05-02 14:35] LABS: Appearance CLEAR (CLEAR); Bilirubin NEGATIVE (NEGATIVE); Blood NEGATIVE Ery/ul (0-5); Glucose 50 mg/dL (NEGATIVE); Ketones NEGATIVE (NEGATIVE); Leukocyte Esterase NEGATIVE (NEGATIVE); Mucus SLIGHT /HPF (NEGATIVE); Nitrite NEGATIVE (NEGATIVE); Protein,Urine Dip >=500 (Negative); Specific Gravity 1.011 (1.005-1.025); Urobilinogen NEGATIVE mg/dL (0-1)
[2018-05-02] MEDS ORDERED: PROVENTIL 2.5 MG/3 ML NEB IH SCH (15:00)
[2018-05-02] MEDS: Lotrel 5/10 MG PO SCH (15:29)
[2018-05-02] MEDS: DUONEB 0.5-3 MG/3 ml Neb IH SCH ×3 (15:51→23:11)
--- NOTE | 2018-05-02 16:15 | XRAY ---
Indication: Short of breath, chest pain/pressure, and elevated d-dimer. History COPD. Comparison: None Patient received 5.2 mCi technetium 99 MAA for the perfusion portion of exam. Patient inhaled approximately 35.6 mCi of aerosolized technetium 99 DTPA for the ventilation portion. Multiple planar images obtained. Perfusion images demonstrates small subtle peripheral right middle lobe perfusion defect. Left lung demonstrates homogeneous radiopharmaceutical activity. Ventilation images demonstrates diffuse heterogeneous radiopharmaceutical activity progressively more central favoring chronic obstructive disease. Small matching right middle lobe ventilation defect. No other focal ventilation defect. Incidental small amount of ingested radiopharmaceutical activity in the GI system. Impression: 1. Small matching right middle lobe ventilation perfusion defect presumed corresponding to spiculated calcified mass as seen on same day radiograph. 2. No mismatch ventilation perfusion defect. 3. PIOPED criteria for pulmonary embolus is low probability. 4. Heterogeneous radiopharmaceutical activity on ventilation images predominantly more central favoring chronic obstructive disease.
[2018-05-02] MEDS ORDERED: Lopressor 50 MG PO SCH (16:30)
[2018-05-02] MEDS: APRESOLINE 20 MG/ML INJ IV PRN (16:44)
[2018-05-02] MEDS: TYLENOL 325 MG PO PRN (17:35)
[2018-05-02] MEDS: Klor Con 10 MEQ PO SCH (21:29)
[2018-05-02] MEDS: ZOCOR 20MG PO SCH (21:29)
[2018-05-02] MEDS ORDERED: NON-FORMULARY ITEM (Amlodipine Besylate/Benazepril [Lotrel 10-20 Mg Capsule] 1 EACH) PO SCH (22:00)
[2018-05-02] MEDS ORDERED: Cozaar 50 MG PO SCH (22:00)
[2018-05-02] MEDS ORDERED: NON-FORMULARY ITEM (Potassium Chloride [K-Dur] 10 MEQ) PO SCH (22:00)
[2018-05-02] MEDS ORDERED: hydroDIURIL 25 MG PO SCH (22:00)
[2018-05-02] MEDS ORDERED: NON-FORMULARY ITEM (Losartan/Hydrochlorothiazide [Losartan-Hctz 100-25 Mg Tab] 1 EACH) PO SCH (22:00)
[2018-05-02] MEDS ORDERED: NON-FORMULARY ITEM (Atorvastatin Calcium [Lipitor] 40 MG) PO SCH (22:00)
[2018-05-03] MEDS: DUONEB 0.5-3 MG/3 ml Neb IH SCH ×6 (03:13→23:15)
[2018-05-03] MEDS: Sodium Chloride 0.9% 10 ML FLUSH Syringe IV SCH ×3 (05:03→22:23)
[2018-05-03 05:54] LABS: Hematocrit 29.5 % (35-47); Hemoglobin 9.4 gm/dl (12.0-16.0); Mean Cell Volume 106.1 fl (78-100); Mean Corpuscular Hemoglobin 33.8 pg (26-32); Mean Corpuscular Hgb Concent. 31.9 g/dl (32-36); Mean Platelet Volume 10.9 fl (6-9.5); Platelet Count 270 K/mm3 (150-450); Red Blood Count 2.78 M/mm3 (4.1-5.4); Red Cell Distribution Width 12.5 % (11.5-14.0); White Blood Count 7.6 K/mm3 (4.0-10.5)
[2018-05-03 06:09] LABS: ANION GAP 11.3 MEQ/L (5-15); Calcium 8.1 mg/dL (8.4-10.2); Creatinine 1 2.22 mg/dL (0.52-1.04); Potassium 3.6 mmol/L (3.5-5.1)
--- NOTE | 2018-05-03 09:05 | PCM.HP ---
History of Present Illness - Chief Complaint Chief Complaint: SOB,Renal Failure, elivated d-dimer, HTN, History of Present Illness: is a 52 year old female with COPD, CHF, chronic renal disease, lung mass, hx NE, peripheral neuropathy, and HTN who came to ER c/o 4d of increased SOB, cough, fever with chills. She was found to have an elevated D-dimer so had a VQ scan which was low probability for PE. She is on 80mg lovenox SQ daily. She is c/o some chest pressure with coughing; was initially relieved by breathing tx in ER. Troponins have been elevated but trending down since admission. Pt feeling a little better this morning. - Review of Systems Constitutional: Fever, Chills Respiratory: Cough, Short Of Breath Cardiac: Chest Pain Abdominal/Gastrointestinal: Diarrhea, Other (few dark tarry stools) Psychological: No Suicidal Ideations All Other Systems: Reviewed and Negative Medications & Allergies Home Medications: Home Medication List Albuterol 2.5 mg/3 ml Neb [Proventil 2.5 mg/3 ml Neb] 2.5 mg IH Q4HPRN PRN 05/02/18 [History Confirmed 05/02/18] Albuterol 8 gm Mdi Hfa [Ventolin Hfa MDI] 8 gm IH Q4H PRN PRN 05/02/18 [ History Confirmed 05/02/18] Amlodipine Besylate/Benazepril [Lotrel 10-20 mg Capsule] 1 each PO HS 05/02/18 [ History Confirmed 05/02/18] Atorvastatin Calcium [Lipitor] 40 mg PO HS 05/02/18 [History Confirmed 05/02/18] Furosemide 40 mg [Lasix 40 MG] 40 mg PO DAILY 05/02/18 [History Confirmed 05/02/18] Losartan/Hydrochlorothiazide [Losartan-Hctz 100-25 mg Tab] 1 each PO HS [History Confirmed 05/02/18] Metoprolol Tartrate [Lopressor] 50 mg PO DAILY 05/02/18 [History Confirmed 05/02] Potassium Chloride [K-Dur] 10 meq PO HS 05/02/18 [History Confirmed 05/02/18] Allergies/Adverse Reactions: Allergies Allergy/AdvReac Type Severity Reaction Status Date / Time gabapentin [From Neurontin] AdvReac Verified 05/02/18 12:22 tramadol [From Ultram] AdvReac Verified 05/02/18 12:22 - Past Medical History Past Medical History: Yes Neurological History: Migraines ENT History: No Pertinent History Cardiac History: Hypertension, Myocardial Infarction (NE) Respiratory History: Bronchitis, COPD, Pneumonia Endocrine Medical History: No Pertinent History Musculoskelatal History: Arthritis GI Medical History: No Pertinent History History: Renal Disease Pyscho-Social History: No Pertinent History Reproductive Disorders: No Pertinent History - Female History Are you now?: No - Past Surgical History Past Surgical History: Yes Neuro Surgical History: No Pertinent History Cardiac History: No Pertinent History Respiratory Surgery: No Pertinent History GI Surgical History: Cholecystectomy Genitourinary Surgical Hx: No Pertinent History Musculskeletal Surgical Hx: No Pertinent History Female Surgical History: Section, Other - Social History Smoking Status: Current every day smoker How long have you smoked: 30 years Exposure to second hand smoke: Yes Alcohol: None Drug Use: none - Physical Exam Vital Signs: Vital Signs - 24 hr Temp Pulse Resp BP Pulse Ox 05/03/18 07:21 77 16 95 05/03/18 07:11 98.3 F 85 20 173/79 97 05/03/18 04:00 21 05/03/18 03:46 98.6 F 76 21 146/67 94 L 05/03/18 03:13 75 21 94 L 05/03/18 00:00 21 05/02/18 23:17 98.1 F 71 21 144/66 98 05/02/18 23:11 71 21 96 05/02/18 19:45 25 H 05/02/18 19:27 74 25 H 95 05/02/18 18:43 98.9 F 73 13 152/67 97 05/02/18 17:58 83 173/77 05/02/18 16:10 98.2 F 74 18 234/101 96 05/02/18 16:00 18 05/02/18 15:49 99 05/02/18 15:07 76 22 99 05/02/18 14:00 98 05/02/18 12:20 99.1 F 68 18 228/109 98 05/02/18 11:57 75 24 200/104 98 05/02/18 11:43 100 05/02/18 10:50 83 19 217/101 100 05/02/18 10:44 75 20 100 05/02/18 10:43 79 19 222/97 100 05/02/18 10:25 100 05/02/18 09:49 98.3 F 86 18 234/107 100 General Appearance: no apparent distress, alert Neurologic Exam: oriented x 3, cooperative Eye Exam: eyes nml inspection Ears, Nose, Throat Exam: moist mucous membranes Neck Exam: normal inspection, non-tender, No lymphadenopathy Respiratory Exam: diminished breath sounds (fair air exchange), prolonged expirations, No crackles/rales, No rhonchi, No wheezing Cardiovascular Exam: regular rate/rhythm, normal heart sounds, No murmur Back Exam: normal inspection, No rash Extremity Exam: normal inspection, No pedal edema, No swelling Skin Exam: normal color, warm, dry, No rash Results - Labs Lab/Micro Results: Lab Results-Last 24 Hours 05/02/18 05/02/18 05/02/18 Range/Units 10:22 10:26 10:26 WBC 8.7 (4.0-10.5) K/mm3 RBC 2.98 L (4.1-5.4) M/mm3 Hgb 10.2 L (12.0-16.0) gm/dl Hct 31.4 L (35-47) % MCV 105.4 H (78-100) fl MCH 34.2 H (26-32) pg MCHC 32.5 (32-36) g/dl RDW 12.3 (11.5-14.0) % Plt Count 257 (150-450) K/mm3 MPV 11.3 H (6-9.5) fl Gran % 75.3 H (36.0-66.0) % Eos # (Auto) 0.10 (0-0.5) Absolute Lymphs (auto) 1.39 (1.0-4.6) Absolute Monos (auto) 0.64 (0.0-1.3) Lymphocytes % 16.0 L (24.0-44.0) % Monocytes % 7.4 (0.0-12.0) % Eosinophils % 1.2 (0.00-5.0) % Basophils % 0.1 (0.0-0.4) % Absolute Granulocytes 6.54 (1.4-6.9) Basophils # 0.01 (0-0.4) D-Dimer (215-500) ng/mL Sodium 140 (137-145) mmol/L Potassium 3.3 L (3.5-5.1) mmol/L Chloride 104 (98-107) mmol/L Carbon Dioxide 26 (22-30) mmol/L Anion Gap 13.1 (5-15) MEQ/L BUN 23 H (7-17) mg/dL Creatinine 2.15 H (0.52-1.04) mg/dL Estimated GFR 25.4 ML/MIN Glucose 126 H (74-106) mg/dL Lactic Acid 1.4 (0.4-2.0) Calcium 8.9 (8.4-10.2) mg/dL Total Bilirubin 0.50 (0.2-1.3) mg/dL AST 25 (14-36) U/L ALT 27 (0-35) U/L Alkaline Phosphatase 126 (38-126) U/L Troponin I (0.000-0.034) ng/mL NT-Pro-B Natriuret Pep 16897 H (0-900) pg/mL Serum Total Protein 6.9 (6.3-8.2) g/dL Albumin 3.7 (3.5-5.0) g/dL Urine Color (YELLOW) Urine Appearance (CLEAR) Urine pH (5-6) Ur Specific [place] (1.005-1.025) Urine Protein (Negative) Urine Ketones (NEGATIVE) Urine Blood (0-5) Aryan/ul Urine Nitrite (NEGATIVE) Urine Bilirubin (NEGATIVE) Urine Urobilinogen (0-1) mg/dL Ur Leukocyte Esterase (NEGATIVE) Urine WBC (Auto) (0-5) /HPF Urine RBC (Auto) (0-2) /HPF U Epithel Cells (Auto) (FEW) /HPF Urine Bacteria (Auto) (NEGATIVE) /HPF Urine Mucus (Auto) (NEGATIVE) /HPF Urine Culture Reflexed (NO) Urine Glucose (NEGATIVE) mg/dL Influenza Type A Ag (NEGATIVE) Influenza Type B Ag (NEGATIVE) RSV (PCR) (Negative) 05/02/18 05/02/18 05/02/18 Range/Units 10:26 10:26 10:26 WBC (4.0-10.5) K/mm3 RBC (4.1-5.4) M/mm3 Hgb (12.0-16.0) gm/dl Hct (35-47) % MCV (78-100) fl MCH (26-32) pg MCHC (32-36) g/dl RDW (11.5-14.0) % Plt Count (150-450) K/mm3 MPV (6-9.5) fl Gran % (36.0-66.0) % Eos # (Auto) (0-0.5) Absolute Lymphs (auto) (1.0-4.6) Absolute Monos (auto) (0.0-1.3) Lymphocytes % (24.0-44.0) % Monocytes % (0.0-12.0) % Eosinophils % (0.00-5.0) % Basophils % (0.0-0.4) % Absolute Granulocytes (1.4-6.9) Basophils # (0-0.4) D-Dimer 1303 H* (215-500) ng/mL Sodium (137-145) mmol/L Potassium (3.5-5.1) mmol/L Chloride (98-107) mmol/L Carbon Dioxide (22-30) mmol/L Anion Gap (5-15) MEQ/L BUN (7-17) mg/dL Creatinine (0.52-1.04) mg/dL Estimated GFR ML/MIN Glucose (74-106) mg/dL Lactic Acid (0.4-2.0) Calcium (8.4-10.2) mg/dL Total Bilirubin (0.2-1.3) mg/dL AST (14-36) U/L ALT (0-35) U/L Alkaline Phosphatase (38-126) U/L Troponin I 0.141 H* (0.000-0.034) ng/mL NT-Pro-B Natriuret Pep (0-900) pg/mL Serum Total Protein (6.3-8.2) g/dL Albumin (3.5-5.0) g/dL Urine Color (YELLOW) Urine Appearance (CLEAR) Urine pH (5-6) Ur Specific [place] (1.005-1.025) Urine Protein (Negative) Urine Ketones (NEGATIVE) Urine Blood (0-5) Aryan/ul Urine Nitrite (NEGATIVE) Urine Bilirubin (NEGATIVE) Urine Urobilinogen (0-1) mg/dL Ur Leukocyte Esterase (NEGATIVE) Urine WBC (Auto) (0-5) /HPF Urine RBC (Auto) (0-2) /HPF U Epithel Cells (Auto) (FEW) /HPF Urine Bacteria (Auto) (NEGATIVE) /HPF Urine Mucus (Auto) (NEGATIVE) /HPF Urine Culture Reflexed (NO) Urine Glucose (NEGATIVE) mg/dL Influenza Type A Ag NEGATIVE (NEGATIVE) Influenza Type B Ag NEGATIVE (NEGATIVE) RSV (PCR) NEGATIVE (Negative) 05/02/18 05/02/18 05/02/18 Range/Units 13:37 13:41 16:25 WBC (4.0-10.5) K/mm3 RBC (4.1-5.4) M/mm3 Hgb (12.0-16.0) gm/dl Hct (35-47) % MCV (78-100) fl MCH (26-32) pg MCHC (32-36) g/dl RDW (11.5-14.0) % Plt Count (150-450) K/mm3 MPV (6-9.5) fl Gran % (36.0-66.0) % Eos # (Auto) (0-0.5) Absolute Lymphs (auto) (1.0-4.6) Absolute Monos (auto) (0.0-1.3) Lymphocytes % (24.0-44.0) % Monocytes % (0.0-12.0) % Eosinophils % (0.00-5.0) % Basophils % (0.0-0.4) % Absolute Granulocytes (1.4-6.9) Basophils # (0-0.4) D-Dimer (215-500) ng/mL Sodium (137-145) mmol/L Potassium (3.5-5.1) mmol/L Chloride (98-107) mmol/L Carbon Dioxide (22-30) mmol/L Anion Gap (5-15) MEQ/L BUN (7-17) mg/dL Creatinine (0.52-1.04) mg/dL Estimated GFR ML/MIN Glucose (74-106) mg/dL Lactic Acid (0.4-2.0) Calcium (8.4-10.2) mg/dL Total Bilirubin (0.2-1.3) mg/dL AST (14-36) U/L ALT (0-35) U/L Alkaline Phosphatase (38-126) U/L Troponin I 0.135 H* 0.123 H* (0.000-0.034) ng/mL NT-Pro-B Natriuret Pep (0-900) pg/mL Serum Total Protein (6.3-8.2) g/dL Albumin (3.5-5.0) g/dL Urine Color YELLOW (YELLOW) Urine Appearance CLEAR (CLEAR) Urine pH 7.0 (5-6) Ur Specific [place] 1.011 (1.005-1.025) Urine Protein >=500 (Negative) Urine Ketones NEGATIVE (NEGATIVE) Urine Blood NEGATIVE (0-5) Aryan/ul Urine Nitrite NEGATIVE (NEGATIVE) Urine Bilirubin NEGATIVE (NEGATIVE) Urine Urobilinogen NEGATIVE (0-1) mg/dL Ur Leukocyte Esterase NEGATIVE (NEGATIVE) Urine WBC (Auto) NONE (0-5) /HPF Urine RBC (Auto) NONE (0-2) /HPF U Epithel Cells (Auto) NONE (FEW) /HPF Urine Bacteria (Auto) NONE (NEGATIVE) /HPF Urine Mucus (Auto) SLIGHT (NEGATIVE) /HPF Urine Culture Reflexed NO (NO) Urine Glucose 50 (NEGATIVE) mg/dL Influenza Type A Ag (NEGATIVE) Influenza Type B Ag (NEGATIVE) RSV (PCR) (Negative) 05/02/18 05/02/18 05/03/18 Range/Units 19:40 22:32 05:20 WBC 7.6 (4.0-10.5) K/mm3 RBC 2.78 L (4.1-5.4) M/mm3 Hgb 9.4 L (12.0-16.0) gm/dl Hct 29.5 L (35-47) % MCV 106.1 H (78-100) fl MCH 33.8 H (26-32) pg MCHC 31.9 L (32-36) g/dl RDW 12.5 (11.5-14.0) % Plt Count 270 (150-450) K/mm3 MPV 10.9 H (6-9.5) fl Gran % (36.0-66.0) % Eos # (Auto) (0-0.5) Absolute Lymphs (auto) (1.0-4.6) Absolute Monos (auto) (0.0-1.3) Lymphocytes % (24.0-44.0) % Monocytes % (0.0-12.0) % Eosinophils % (0.00-5.0) % Basophils % (0.0-0.4) % Absolute Granulocytes (1.4-6.9) Basophils # (0-0.4) D-Dimer (215-500) ng/mL Sodium (137-145) mmol/L Potassium (3.5-5.1) mmol/L Chloride (98-107) mmol/L Carbon Dioxide (22-30) mmol/L Anion Gap (5-15) MEQ/L BUN (7-17) mg/dL Creatinine (0.52-1.04) mg/dL Estimated GFR ML/MIN Glucose (74-106) mg/dL Lactic Acid (0.4-2.0) Calcium (8.4-10.2) mg/dL Total Bilirubin (0.2-1.3) mg/dL AST (14-36) U/L ALT (0-35) U/L Alkaline Phosphatase (38-126) U/L Troponin I 0.123 H* 0.119 H* (0.000-0.034) ng/mL NT-Pro-B Natriuret Pep (0-900) pg/mL Serum Total Protein (6.3-8.2) g/dL Albumin (3.5-5.0) g/dL Urine Color (YELLOW) Urine Appearance (CLEAR) Urine pH (5-6) Ur Specific [place] (1.005-1.025) Urine Protein (Negative) Urine Ketones (NEGATIVE) Urine Blood (0-5) Aryan/ul Urine Nitrite (NEGATIVE) Urine Bilirubin (NEGATIVE) Urine Urobilinogen (0-1) mg/dL Ur Leukocyte Esterase (NEGATIVE) Urine WBC (Auto) (0-5) /HPF Urine RBC (Auto) (0-2) /HPF U Epithel Cells (Auto) (FEW) /HPF Urine Bacteria (Auto) (NEGATIVE) /HPF Urine Mucus (Auto) (NEGATIVE) /HPF Urine Culture Reflexed (NO) Urine Glucose (NEGATIVE) mg/dL Influenza Type A Ag (NEGATIVE) Influenza Type B Ag (NEGATIVE) RSV (PCR) (Negative) 05/03/18 Range/Units 05:20 WBC (4.0-10.5) K/mm3 RBC (4.1-5.4) M/mm3 Hgb (12.0-16.0) gm/dl Hct (35-47) % MCV (78-100) fl MCH (26-32) pg MCHC (32-36) g/dl RDW (11.5-14.0) % Plt Count (150-450) K/mm3 MPV (6-9.5) fl Gran % (36.0-66.0) % Eos # (Auto) (0-0.5) Absolute Lymphs (auto) (1.0-4.6) Absolute Monos (auto) (0.0-1.3) Lymphocytes % (24.0-44.0) % Monocytes % (0.0-12.0) % Eosinophils % (0.00-5.0) % Basophils % (0.0-0.4) % Absolute Granulocytes (1.4-6.9) Basophils # (0-0.4) D-Dimer (215-500) ng/mL Sodium 138 (137-145) mmol/L Potassium 3.6 (3.5-5.1) mmol/L Chloride 106 (98-107) mmol/L Carbon Dioxide 24 (22-30) mmol/L Anion Gap 11.3 (5-15) MEQ/L BUN 28 H (7-17) mg/dL Creatinine 2.22 H (0.52-1.04) mg/dL Estimated GFR 24.5 ML/MIN Glucose 102 (74-106) mg/dL Lactic Acid (0.4-2.0) Calcium 8.1 L (8.4-10.2) mg/dL Total Bilirubin (0.2-1.3) mg/dL AST (14-36) U/L ALT (0-35) U/L Alkaline Phosphatase (38-126) U/L Troponin I (0.000-0.034) ng/mL NT-Pro-B Natriuret Pep (0-900) pg/mL Serum Total Protein (6.3-8.2) g/dL Albumin (3.5-5.0) g/dL Urine Color (YELLOW) Urine Appearance (CLEAR) Urine pH (5-6) Ur Specific [place] (1.005-1.025) Urine Protein (Negative) Urine Ketones (NEGATIVE) Urine Blood (0-5) Aryan/ul Urine Nitrite (NEGATIVE) Urine Bilirubin (NEGATIVE) Urine Urobilinogen (0-1) mg/dL Ur Leukocyte Esterase (NEGATIVE) Urine WBC (Auto) (0-5) /HPF Urine RBC (Auto) (0-2) /HPF U Epithel Cells (Auto) (FEW) /HPF Urine Bacteria (Auto) (NEGATIVE) /HPF Urine Mucus (Auto) (NEGATIVE) /HPF Urine Culture Reflexed (NO) Urine Glucose (NEGATIVE) mg/dL Influenza Type A Ag (NEGATIVE) Influenza Type B Ag (NEGATIVE) RSV (PCR) (Negative) - Radiology Impressions Radiology Exams & Impressions: Radiology Procedures Category Date Time Status CHEST 2 VIEWS (PA AND LAT) Stat Exams 05/02/18 10:23 Completed PULMONARY PERF VENTILATION [NUCMED] Stat Exams 05/02/18 12:20 Completed - Other Procedures and Tests Respiratory Therapy 05/02/18 12:57 Peak Expiratory Flow Rate ONCE Respiratory Therapy Assessment DAILY Assessment/Plan (1) COPD exacerbation Current Visit: Yes Status: Acute Assessment & Plan: Pt was not given antibiotics in the ER. Will start her on rocephin 1g IV daily and zithromax 500mg IV daily. Start steroids at 40mg IV q8h. Code(s): J44.1 - CHRONIC OBSTRUCTIVE PULMONARY DISEASE W (ACUTE) EXACERBATION (2) CHF (congestive heart failure) Current Visit: Yes Status: Acute Qualifiers: Heart failure chronicity: acute on chronic Assessment & Plan: BNP elevated - will change po lasix to IV Code(s): I50.9 - HEART FAILURE, UNSPECIFIED (3) Elevated d-dimer Current Visit: Yes Status: Acute Assessment & Plan: Likely related to CHF exacerbation. VQ scan low probability for PE. Code(s): R79.89 - OTHER SPECIFIED ABNORMAL FINDINGS OF BLOOD CHEMISTRY (4) Elevated troponin Current Visit: Yes Status: Acute Assessment & Plan: Also likely related to elevated BNP, elevated BUN/Cr. However, would have a low threshold of repeating troponing/EKG if increasing sx since pt has hx NSTEMI. Her EKG in ER was unremarkable. Code(s): R74.8 - ABNORMAL LEVELS OF OTHER SERUM ENZYMES (5) Hypertension Current Visit: Yes Status: Acute Qualifiers: Hypertension type: essential hypertension Qualified Code(s): I10 - Essential (primary) hypertension Assessment & Plan: very elevated BP here - has gotten hydralazine prn. She was on metoprolol tartrate once daily so I increased that, to 50mg po BID. Code(s): I10 - ESSENTIAL (PRIMARY) HYPERTENSION (6) Renal failure Current Visit: Yes Status: Chronic Qualifiers: Renal failure chronicity: chronic Chronic kidney disease stage: stage 4 ( severe) Qualified Code(s): N18.4 - Chronic kidney disease, stage 4 (severe) Assessment & Plan: Stable. Her BUN/Cr in October 2017 were 35 and 1.95 (eGFR 28.4) - currently 28 and 2.22 (eGFR 24.5). Sees Dr. Anthony. (7) Lung mass Current Visit: No Status: Chronic Assessment & Plan: CXR reads "stable" spiculated mass. Dr. Latham to follow up as needed. Code(s): R91.8 - OTHER NONSPECIFIC ABNORMAL FINDING OF LUNG FIELD
[2018-05-03] MEDS: Lasix 40 MG/4 ML IV SCH (09:48)
[2018-05-03] MEDS: ENOXAPARIN SODIUM SQ SCH (09:48)
[2018-05-03] MEDS: ROCEPHIN 1 Gm-D5w 50 ml Bag** 1 G/50 ML IVPB IV SCH (09:49)
[2018-05-03] MEDS: Lopressor 50 MG PO SCH ×2 (09:49→22:10)
[2018-05-03] MEDS: solu-MEDROL 40 MG IV SCH ×2 (09:50→18:43)
[2018-05-03] MEDS ORDERED: ENOXAPARIN SODIUM SQ SCH (10:00)
[2018-05-03] MEDS: Zithromax 500 MG/ 250 ML NaCl Premix 500 MG/250 ML IVPB IV SCH (10:37)
[2018-05-03] MEDS: APRESOLINE 20 MG/ML INJ IV PRN ×2 (16:09→20:21)
[2018-05-03] MEDS: Lotrel 5/10 MG PO SCH (22:09)
[2018-05-03] MEDS: ZOCOR 20MG PO SCH (22:09)
[2018-05-03] MEDS: Klor Con 10 MEQ PO SCH (22:10)
[2018-05-04] MEDS: APRESOLINE 20 MG/ML INJ IV PRN ×2 (00:19→07:32)
[2018-05-04] MEDS: TYLENOL 325 MG PO PRN (00:29)
[2018-05-04] MEDS: solu-MEDROL 40 MG IV SCH ×2 (01:23→08:42)
[2018-05-04] MEDS: Sodium Chloride 0.9% 10 ML FLUSH Syringe IV SCH (01:25)
[2018-05-04] MEDS: DUONEB 0.5-3 MG/3 ml Neb IH SCH ×2 (03:29→06:49)
[2018-05-04 05:43] LABS: BASOPHIL % 0.1 % (0.0-0.4); Basophil (Absolute #) 0.01 (0-0.4); Eosinophil % 0.1 % (0.00-5.0); Eosinophil (Absolute #) 0.01 (0-0.5); Granulocytes % 94.4 % (36.0-66.0); Hematocrit 30.8 % (35-47); Lymphocyte (Absolute #) 0.42 (1.0-4.6); Lymphocytes % 4.3 % (24.0-44.0); Mean Cell Volume 106.9 fl (78-100); Mean Corpuscular Hemoglobin 34.7 pg (26-32); Mean Corpuscular Hgb Concent. 32.5 g/dl (32-36); Mean Platelet Volume 10.6 fl (6-9.5); Monocyte (Absolute #) 0.11 (0.0-1.3); Monocytes % 1.1 % (0.0-12.0); Platelet Count 329 K/mm3 (150-450); Red Blood Count 2.88 M/mm3 (4.1-5.4); Red Cell Distribution Width 12.2 % (11.5-14.0); White Blood Count 9.8 K/mm3 (4.0-10.5)
[2018-05-04 06:12] LABS: ALBUMIN 3.7 g/dL (3.5-5.0); ANION GAP 15.6 MEQ/L (5-15); BILIRUBIN,TOTAL 0.3 mg/dL (0.2-1.3); Calcium 9.1 mg/dL (8.4-10.2); Creatinine 1 2.19 mg/dL (0.52-1.04); Potassium 4.4 mmol/L (3.5-5.1); Total Protein 6.8 g/dL (6.3-8.2)
[2018-05-04 06:53] VITALS: O2SAT 96
[2018-05-04 07:12] LABS: Slide Review 1 YES
--- NOTE | 2018-05-04 08:19 | PCM.DS ---
Discharge Summary Date of Admission: 05/02/18 12:15 Admitting Physician: YU JEFFRIES Primary Care Provider: TRACY PRESLEY Allergies Allergies gabapentin [From Neurontin] Adverse Reaction (Verified 05/02/18 12:22) vomiting tramadol [From Ultram] Adverse Reaction (Verified 05/02/18 12:22) vomiting Hospital Summary - Hospital Course Hospital Course: patient was admitted with chest pain and shortness of breath, vq scan was low probability. she is feeling much better after treatment for copd exacerbation. - Vitals & Intake/Output Vital Signs: Vital Signs Temperature 98.4 F 05/04/18 06:56 Pulse Rate 86 05/04/18 06:56 Respiratory Rate 18 05/04/18 06:56 Blood Pressure 172/73 05/04/18 06:56 O2 Sat by Pulse Oximetry 96 05/04/18 06:56 Intake & Output: Intake & Output 05/01/18 05/02/18 05/03/18 05/04/18 11:59 11:59 11:59 11:59 Intake Total 1460 2380 Output Total 2100 1700 Balance -640 680 Weight 72.575 kg 76.1 kg 78.3 kg - Lab Result Diagrams: 05/04/18 05:35 05/04/18 05:35 Lab Results-Last 24 Hrs: Lab Results-Last 24 Hours 05/04/18 05/04/18 Range/Units 05:35 05:35 WBC 9.8 (4.0-10.5) K/mm3 RBC 2.88 L (4.1-5.4) M/mm3 Hgb 10.0 L (12.0-16.0) gm/dl Hct 30.8 L (35-47) % MCV 106.9 H (78-100) fl MCH 34.7 H (26-32) pg MCHC 32.5 (32-36) g/dl RDW 12.2 (11.5-14.0) % Plt Count 329 (150-450) K/mm3 MPV 10.6 H (6-9.5) fl Gran % 94.4 H (36.0-66.0) % Eos # (Auto) 0.01 (0-0.5) Absolute Lymphs (auto) 0.42 L (1.0-4.6) Absolute Monos (auto) 0.11 (0.0-1.3) Lymphocytes % 4.3 L (24.0-44.0) % Monocytes % 1.1 (0.0-12.0) % Eosinophils % 0.1 (0.00-5.0) % Basophils % 0.1 (0.0-0.4) % Absolute Granulocytes 9.25 H (1.4-6.9) Basophils # 0.01 (0-0.4) Sodium 138 (137-145) mmol/L Potassium 4.4 D (3.5-5.1) mmol/L Chloride 104 (98-107) mmol/L Carbon Dioxide 23 (22-30) mmol/L Anion Gap 15.6 H (5-15) MEQ/L BUN 36 H (7-17) mg/dL Creatinine 2.19 H (0.52-1.04) mg/dL Estimated GFR 24.9 ML/MIN Glucose 180 H (74-106) mg/dL Calcium 9.1 (8.4-10.2) mg/dL Total Bilirubin 0.30 (0.2-1.3) mg/dL AST 18 (14-36) U/L ALT 21 (0-35) U/L Alkaline Phosphatase 106 (38-126) U/L NT-Pro-B Natriuret Pep 8880 H (0-900) pg/mL Serum Total Protein 6.8 (6.3-8.2) g/dL Albumin 3.7 (3.5-5.0) g/dL Slides for Path Review YES - Radiology Exams Ordered Rad Exams-Entire Visit: Radiology Procedures Category Date Time Status CHEST 2 VIEWS (PA AND LAT) Stat Exams 05/02/18 10:23 Completed PULMONARY PERF VENTILATION [NUCMED] Stat Exams 05/02/18 12:20 Completed - Procedures and Test Procedures and Tests throughout Hospitalization: Therapy Orders & Screens 05/02/18 10:24 Respiratory Nebulizer STAT Comment: Diagnosis: Shortness of Breath 05/02/18 10:42 Peak Expiratory Flow Rate ONCE Comment: Reason For Exam: Diagnosis: Shortness of Breath Respiratory Therapy Assessment DAILY Comment: Diagnosis: Shortness of Breath 05/02/18 12:49 Smoking Cessation Education ONCE Comment: Diagnosis: SOB,Renal Failure, elivated d-dimer, HTN, Smoking Status: Current every day smoker How long have you smoked: 30 years Approximately how many cigarettes per day: 9 Do you dip or chew tobacco: No 05/02/18 12:57 Peak Expiratory Flow Rate ONCE Comment: Reason For Exam: Diagnosis: SOB,Renal Failure, elivated d-dimer, HTN, Respiratory Therapy Assessment DAILY Comment: Diagnosis: SOB,Renal Failure, elivated d-dimer, HTN, Discharge Exam General Appearance: no apparent distress, alert Neurologic Exam: alert, oriented x 3, cooperative, normal mood/affect, nml cerebellar function, sensation nml, No motor deficits Skin Exam: normal color, warm, dry Respiratory Exam: prolonged expirations Cardiovascular Exam: regular rate/rhythm, normal heart sounds Gastrointestinal/Abdomen Exam: soft, No tenderness, No mass Extremity Exam: normal inspection, normal range of motion Final Diagnosis/Problem List - Final Discharge Diagnosis/Problem (1) COPD exacerbation Current Visit: Yes Status: Acute Onset Date: ~05/02/18 Assessment & Plan: improved, home with po prednisone and doxycycline (2) Lung mass Current Visit: No Status: Chronic Assessment & Plan: has appointment with Dr Benson today, has been followed. (3) CHF (congestive heart failure) Current Visit: Yes Status: Acute Onset Date: ~05/02/18 - Discharge Disposition: Home, Self-Care Condition: Stable Prescriptions: New Prednisone 20 mg [Deltasone 20 mg] 20 mg PO UD #18 tablet Doxycycline Hyclate 100 mg [Vibramycin 100 MG] 100 mg PO BID #20 tab Continue Furosemide 40 mg [Lasix 40 MG] 40 mg PO DAILY Potassium Chloride [K-Dur] 10 meq PO HS Metoprolol Tartrate [Lopressor] 50 mg PO DAILY Losartan/Hydrochlorothiazide [Losartan-Hctz 100-25 mg Tab] 1 each PO HS Atorvastatin Calcium [Lipitor] 40 mg PO HS Amlodipine Besylate/Benazepril [Lotrel 10-20 mg Capsule] 1 each PO HS Albuterol 2.5 mg/3 ml Neb [Proventil 2.5 mg/3 ml Neb] 2.5 mg IH Q4HPRN PRN PRN Reason: Shortness Of Breath Albuterol 8 gm Mdi Hfa [Ventolin Hfa MDI] 8 gm IH Q4H PRN PRN PRN Reason: Shortness Of Breath Follow up with: YU JEFFRIES MD [ACTIVE STAFF] - 1 Week
[2018-05-04] MEDS: ROCEPHIN 1 Gm-D5w 50 ml Bag** 1 G/50 ML IVPB IV SCH (08:42)
[2018-05-04] MEDS: Lasix 40 MG/4 ML IV SCH (08:42)
[2018-05-04] MEDS: ENOXAPARIN SODIUM SQ SCH (08:42)
[2018-05-04] MEDS: Lopressor 50 MG PO SCH (08:42)
[2018-05-04 09:09] VITALS: BP 154/69; PULSE 92
[2018-05-04] MEDS: Zithromax 500 MG/ 250 ML NaCl Premix 500 MG/250 ML IVPB IV SCH (09:17)
== END 2018-05-04 10:45 | disposition home or self-care (01) | DRG 191 ==
LOC: ED 09:41 → OBSVTOIN 12:15 → MED SURG 12:15
PROVIDERS: ADMIT Family Medicine; ATTEND Family Medicine
DX: J44.1 Chronic obstructive pulmonary disease with (acute) exacerbation (principal); N18.4 Chronic kidney disease, stage 4 (severe); R91.8 Other nonspecific abnormal finding of lung field; I12.9 Hypertensive chronic kidney disease with stage 1 through stage 4 chronic kidney disease, or unspecified chronic kidney disease; I50.9 Heart failure, unspecified; I25.2 Old myocardial infarction; G62.9 Polyneuropathy, unspecified; R79.89 Other specified abnormal findings of blood chemistry; R74.8 Abnormal levels of other serum enzymes; Z79.899 Other long term (current) drug therapy; M19.90 Unspecified osteoarthritis, unspecified site; Z72.0 Tobacco use
CPT/HCPCS: 36000; 36415; 71046; 78582; 80048; 80053; 81001; 83605; 83880; 84484; 85025; 85027; 85379; 87631; 93005; 93041; 94150; 94640; 94760; 94762; 96372; 96374; 99285; A9540; A9567; J0360; J0456; J0696; J1650; J1940; J2920; A9270-GY

== ENCOUNTER 2019-01-23 11:19 | Emergency (ER) | payer OTHER ==
--- NOTE | 2019-01-23 11:44 | ERPHSYRPT ---
- History of Present Illness Time Seen by Provider: 01/23/19 11:24 Source: patient Exam Limitations: no limitations Physician History: 53 y/o white female with h/o renal failure presents to ED after she received a phone call from her follow up clerk's office (Antonio) asking her if she received her voicemail from 4 days ago. she had not. she had a blood draw then and potassium found to be 2.5. she is here now for management. pt is asymptomatic. pt take daily potassium Timing/Duration: other (asymptomatic) Modifying Factors: Improves With: nothing Associated Symptoms: denies symptoms Allergies/Adverse Reactions: gabapentin [From Neurontin] Adverse Reaction (Verified 01/23/19 11:32) vomiting tramadol [From Ultram] Adverse Reaction (Verified 01/23/19 11:32) vomiting Home Medications: Furosemide 40 mg [Lasix 40 MG] 40 mg PO DAILY 05/02/18 [History] Potassium Chloride [K-Dur] 10 meq PO HS 05/02/18 [History] Amlodipine Besylate 10 mg DAILY 01/23/19 [History] Clonidine HCl 0.1 mg [Catapres 0.1 MG] 0.2 mg TID 01/23/19 [History] Hydralazine HCl 400 mg TID 01/23/19 [History] Labetalol HCl 1 ea BID 01/23/19 [History] Minoxidil 10 mg DAILY 01/23/19 [History] Spironolact/Hydrochlorothiazid [Spironolactone-Hctz 25-25 Tab] 1 ea DAILY [History] Hx Tetanus, Diphtheria Vaccination/Date Given: No Hx Influenza Vaccination/Date Given: No Hx Pneumococcal Vaccination/Date Given: No - Review of Systems Constitutional: No Symptoms Eyes: No Symptoms Ears, Nose, & Throat: No Symptoms Respiratory: No Symptoms Cardiac: No Symptoms Abdominal/Gastrointestinal: No Symptoms Genitourinary Symptoms: No Symptoms Musculoskeletal: No Symptoms Skin: No Symptoms Neurological: No Symptoms Psychological: No Symptoms Endocrine: No Symptoms Hematologic/Lymphatic: No Symptoms Immunological/Allergic: No Symptoms All Other Systems: Reviewed and Negative - Past Medical History Pertinent Past Medical History: Yes Neurological History: Migraines ENT History: No Pertinent History Cardiac History: Hypertension, Myocardial Infarction ([place]) Respiratory History: Bronchitis, COPD, Pneumonia Endocrine Medical History: No Pertinent History Musculoskeletal History: Arthritis GI Medical History: No Pertinent History History: Renal Disease Psycho-Social History: No Pertinent History Female Reproductive Disorders: No Pertinent History - Past Surgical History Past Surgical History: Yes Neuro Surgical History: No Pertinent History Cardiac: No Pertinent History Respiratory: No Pertinent History Gastrointestinal: Cholecystectomy Genitourinary: No Pertinent History Musculoskeletal: No Pertinent History Female Surgical History: Section, Other - Social History Smoking Status: Current every day smoker How long have you smoked: 30 years Exposure to second hand smoke: Yes Drug Use: none Patient Lives Alone: No - Nursing Vital Signs Nursing Vital Signs: Initial Vital Signs Temperature 98.6 F 01/23/19 11:28 Pulse Rate 92 H 01/23/19 11:28 Respiratory Rate 16 01/23/19 11:28 Blood Pressure 177/100 01/23/19 11:28 O2 Sat by Pulse Oximetry 98 01/23/19 11:28 Pain Scale Pain Intensity 0 - Physical Exam General Appearance: no apparent distress, alert Eye Exam: PERRL/EOMI Ears, Nose, Throat Exam: normal ENT inspection, moist mucous membranes Neck Exam: normal inspection, non-tender, supple, full range of motion Respiratory Exam: normal breath sounds, lungs clear, airway intact, No chest tenderness, No respiratory distress Cardiovascular Exam: regular rate/rhythm, normal heart sounds, normal peripheral pulses Gastrointestinal/Abdomen Exam: soft, normal bowel sounds, No tenderness Pelvic Exam: not done Rectal Exam: not done Back Exam: normal inspection, normal range of motion, No CVA tenderness, No vertebral tenderness Extremity Exam: normal inspection, normal range of motion, pelvis stable Neurologic Exam: alert, oriented x 3, cooperative, 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-XII 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 as tested Skin Exam: normal color, warm, dry Lymphatic Exam: No adenopathy SpO2 Interpretation: normal O2 Delivery: Room Air Ordered Tests: Active Orders 24 hr Category Date Time Status IV Insertion STAT Care 01/23/19 11:55 Active BMP Stat Lab 01/23/19 12:08 Completed Medication Summary Generic Name Dose Route Start Last Admin Trade Name Freq PRN Reason Stop Dose Admin Potassium Chloride 20 meq in 100 mls @ 50 mls/hr 01/23/19 12:44 01/23/19 12: 55 Potassium Chloride 20 Meq In Water 100ml IV 01/23/19 14:43 50 mls/hr STAT ONE Administration Sodium Chloride 1,000 mls @ 50 mls/hr 01/23/19 13:00 01/23/19 12:54 Sodium Chloride 0.9% 1000 Ml IV 02/22/19 12:59 50 mls/hr .Q20H ALEXX Administration Discontinued Medications Generic Name Dose Route Start Last Admin Trade Name Olga PRN Reason Stop Dose Admin Potassium Chloride Confirm 01/23/19 12:49 Potassium Chloride 20 Meq In Water 100ml Administered 01/23/19 12:50 Dose 100 mls @ ud IV .STK-MED ONE Sodium Chloride Confirm 01/23/19 12:49 Sodium Chloride 0.9% 1000 Ml Administered 01/23/19 12:50 Dose 1,000 mls @ ud .ROUTE .STK-MED ONE Potassium Chloride 10 meq 01/23/19 12:45 01/23/19 12:55 Klor Con 10 Meq PO 01/23/19 12:46 10 meq STAT ONE Administration Potassium Chloride Confirm 01/23/19 12:48 Klor Con 10 Meq Administered 01/23/19 12:49 Dose 10 meq PO .STK-MED ONE Lab/Rad Data: Laboratory Result Diagrams 01/23/19 12:08 Laboratory Results 01/23/19 Range/Units 12:08 Sodium 136 L (137-145) mmol/L Potassium 3.1 L (3.5-5.1) mmol/L Chloride 93 L (98-107) mmol/L Carbon Dioxide 31 H (22-30) mmol/L Anion Gap 15.4 H (5-15) MEQ/L BUN 33 H (7-17) mg/dL Creatinine 3.38 H (0.52-1.04) mg/dL Estimated GFR 15.0 ML/MIN Glucose 119 H (74-106) mg/dL Calcium 9.5 (8.4-10.2) mg/dL - Progress Progress: improved Counseled pt/family regarding: lab results, diagnosis, need for follow-up - Departure Departure Disposition: Home Clinical Impression: Hypokalemia Condition: Stable Critical Care Time: No Referrals: YU LÓPEZ MD [Primary Care Provider] - Additional Instructions: Take your medications as prescribed. follow up in lab in the morning of 01/25/19 to recheck potassium level. follow up with dr. lópez afternoon of 01/25/19 for potassium results.
[2019-01-23 12:29] LABS: ANION GAP 15.4 MEQ/L (5-15); Calcium 9.5 mg/dL (8.4-10.2); Creatinine 1 3.38 mg/dL (0.52-1.04); Potassium 3.1 mmol/L (3.5-5.1)
[2019-01-23] MEDS ORDERED: POTASSIUM CHLORIDE 20 mEq IN WATER 100ML 20 MEQ/100 ML BAG IV ONE (12:44)
[2019-01-23] MEDS ORDERED: Klor Con 10 MEQ PO ONE ×2 (12:45→12:48)
[2019-01-23] MEDS ORDERED: Sodium Chloride 0.9% 1000 ML 1,000 ML ONE (12:49)
[2019-01-23] MEDS ORDERED: POTASSIUM CHLORIDE 20 mEq IN WATER 100ML 100 ML IV ONE (12:49)
[2019-01-23] MEDS ORDERED: Sodium Chloride 0.9% 1000 ML 1,000 ML IV SCH (13:00)
[2019-01-23 15:00] VITALS: BP 196/99; PULSE 81; O2SAT 98
== END 2019-01-23 15:13 | disposition home or self-care (01) ==
LOC: ED 11:19
DX: E87.6 Hypokalemia (principal); I10 Essential (primary) hypertension; J44.9 Chronic obstructive pulmonary disease, unspecified
CPT/HCPCS: 36000; 36415; 80048; 96360; 96361; 96365; 96366; 99284; J3480; A9270-GY

== ENCOUNTER 2024-02-26 23:42 | Emergency (ER) | payer OTHER, MEDICARE ==
--- NOTE | 2024-02-26 23:49 | ERPHSYRPT ---
- History of Present Illness Time Seen by Provider: 02/26/24 23:49 Source: patient, family Exam Limitations: clinical condition Physician History: This is a 58-year-old white female patient brought into the emergency department by private vehicle escorted by her daughter and is a patient of Dr. Latham secondary to shortness of breath, coughing, vomiting then confusion in that order. Patient has a history of chronic renal failure on dialysis and has Wednesday dialysis schedule. On the Wednesday prior to this evaluation (02/22/2024), the patient underwent a CT scan with contrast at an outside facility. At 11 PM prior to this evaluation, the patient had complained of shortness of breath followed by coughing spell to the point of gagging then she began vomiting. It was witnessed by her daughter that there was shaking present followed by confusion. Patient is a daily smoker of tobacco. She sees Dr. Bravo as her sample tailor and her legal support assistant is Dr. Anthony. Patient has renal induced hypertension and is on several medications to help try to control her blood pressure. She also has a history of COPD, coronary artery disease and migraine headaches. Her last hemodialysis was Wednesday prior to this evaluation and her next scheduled hemodialysis session is on 02/28/2024. Timing/Duration: today Severity of Dyspnea-Max: mild Severity of Dyspnea-Current: mild Possible Cause: no prior episodes Associated Symptoms: cough (To the point of gagging which caused vomiting), No chest pain/discomfort Allergies/Adverse Reactions: gabapentin [From Neurontin] Adverse Reaction (Verified 01/23/19 11:32) vomiting tramadol [From Ultram] Adverse Reaction (Verified 01/23/19 11:32) vomiting Home Medications: Furosemide 40 mg [Lasix 40 MG] 40 mg PO DAILY 05/02/18 [History] Potassium Chloride [K-Dur] 10 meq PO HS 05/02/18 [History] Amlodipine Besylate 10 mg DAILY 01/23/19 [History] Clonidine HCl 0.1 mg [Clonidine 0.1 mg Tablet] 0.2 mg TID 01/23/19 [History] Hydralazine HCl 400 mg TID 01/23/19 [History] Labetalol HCl 1 ea BID 01/23/19 [History] Spironolact/Hydrochlorothiazid [Spironolactone-Hctz 25-25 Tab] 1 ea DAILY 01/23/19 [History] minoxidiL [Minoxidil] 10 mg DAILY 01/23/19 [History] Hx Tetanus, Diphtheria Vaccination/Date Given: No Hx Influenza Vaccination/Date Given: No Hx Pneumococcal Vaccination/Date Given: No Travel Risk - International Travel Have you traveled outside of the country in past 3 weeks: No - Emerging Infectious Disease Symptoms: Cough: New Onset, Shortness of Breath - Review of Systems Constitutional: Weakness Eyes: No Symptoms Ears, Nose, & Throat: No Symptoms Respiratory: Cough Cardiac: No Chest Pain Abdominal/Gastrointestinal: Abdominal Pain, Nausea, Vomiting, No Diarrhea, No Constipation Genitourinary Symptoms: No Symptoms Musculoskeletal: No Symptoms Skin: No Symptoms Neurological: Other (Confusion) Psychological: No Symptoms Endocrine: No Symptoms Hematologic/Lymphatic: No Symptoms Immunological/Allergic: No Symptoms All Other Systems: Reviewed and Negative - Past Medical History Pertinent Past Medical History: Yes Neurological History: Migraines ENT History: No Pertinent History Cardiac History: Hypertension, Myocardial Infarction ([place]) Respiratory History: Bronchitis, COPD, Pneumonia Endocrine Medical History: No Pertinent History Musculoskeletal History: Arthritis GI Medical History: No Pertinent History History: Renal Disease Psycho-Social History: No Pertinent History Female Reproductive Disorders: No Pertinent History Other Medical History: stage 4 renal disease - Past Surgical History Past Surgical History: Yes Neuro Surgical History: No Pertinent History Cardiac: No Pertinent History Respiratory: No Pertinent History Gastrointestinal: Cholecystectomy Genitourinary: No Pertinent History Musculoskeletal: No Pertinent History Female Surgical History: Section, Other - Social History Smoking Status: Current every day smoker How long have you smoked: 30 years Exposure to second hand smoke: Yes Drug Use: none Patient Lives Alone: No - Nursing Vital Signs Nursing Vital Signs: Initial Vital Signs Temperature 97.1 F 02/26/24 23:54 Pulse Rate 61 02/26/24 23:54 Respiratory Rate 24 02/26/24 23:54 Blood Pressure 213/97 02/26/24 23:54 O2 Sat by Pulse Oximetry 97 02/26/24 23:54 Pain Scale Pain Intensity 5 - Physical Exam General Appearance: mild distress, alert, anxiety, lethargy Eye Exam: PERRL/EOMI Ears, Nose, Throat Exam: hearing grossly normal, normal ENT inspection, normal pharynx Neck Exam: normal inspection, non-tender, supple, full range of motion Respiratory Exam: normal breath sounds, lungs clear, airway intact, No chest tenderness, No respiratory distress Cardiovascular/Chest Exam: normal heart sounds, regular rate/rhythm Abdominal/Gastrointestinal Exam: soft, normal bowel sounds, tenderness (Mild tenderness to palpation diffusely), guarding (Mild tenderness to touch diffusely) Rectal Exam: not done Extremity Exam: non-tender Neurologic Exam: alert, oriented x 3, cooperative, casino attendant II-XII nml as tested, sensation nml Skin Exam: normal color, warm, dry Lymphatic Exam: No adenopathy SpO2 Interpretation: normal O2 Delivery: Room Air - Course Nursing assessment & vital signs reviewed: Yes EKG Interpreted by Me: RATE (62), Sinus Rhythm, NORMAL AXIS, NORMAL INTERVALS, NORMAL QRS, Other (No acute ischemic changes on today's twelve-lead EKG.) Ordered Tests: Active Orders 24 hr Category Date Time Status EKG-ER Only STAT Care 02/27/24 00:29 Active IV Insertion STAT Care 02/27/24 00:29 Active Pulse Oximetry (ED) STAT Care 02/27/24 00:29 Active ABDOMEN AND PELVIS W/0 CONTRAS [CT] Stat Exams 02/27/24 00:31 Completed CHEST 1 VIEW (PORTABLE) Stat Exams 02/27/24 00:30 Taken HEAD WITHOUT CONTRAST [CT] Stat Exams 02/27/24 00:32 Completed AMYLASE Stat Lab 02/27/24 01:15 Completed BLOOD CULTURE Stat Lab 02/27/24 00:30 Received CBC W DIFF Stat Lab 02/27/24 01:15 Completed CMP Stat Lab 02/27/24 01:15 Completed CULTURE,URINE Stat Lab 02/27/24 01:45 Received LIPASE Stat Lab 02/27/24 01:15 Completed MAGNESIUM Stat Lab 02/27/24 01:15 Completed NT PRO BNPII Stat Lab 02/27/24 Completed TROPONIN Q4H Lab 02/27/24 01:15 Completed UA W/RFX UR CULTURE Stat Lab 02/27/24 01:45 Completed Medication Summary Generic Name Dose Route Start Last Admin Trade Name Freq PRN Reason Stop Dose Admin Sodium Chloride 250 mls @ 250 mls/hr 02/27/24 03:30 02/27/24 04:40 Sodium Chloride 0.9% 250 Ml IV 02/27/24 04:29 Infused .Q1H ALEXX Infusion Discontinued Medications Generic Name Dose Route Start Last Admin Trade Name Olga PRN Reason Stop Dose Admin Ondansetron HCl 4 mg 02/27/24 00:29 02/27/24 01:17 EDT Ondansetron Hcl 4 Mg/2 Ml Vial IV 02/27/24 00:30 4 mg STAT ONE Administration Ondansetron HCl Confirm 02/27/24 01:15 EST Ondansetron Hcl 4 Mg/2 Ml Vial Administered 02/27/24 01:16 EST Dose 4 mg .ROUTE .STK-MED ONE Lab/Rad Data: Laboratory Result Diagrams 02/27/24 01:15 EST 02/27/24 01:15 EST Laboratory Results 02/27/24 02/27/24 02/27/24 Range/Units Unknown 01:45 EST 01:15 EST WBC (3.98-10.04) x10^3/uL RBC (3.93-5.22) x10^6/uL Hgb (11.2-15.7) g/dL Hct (34.1-44.9) % MCV (79.4-94.8) fL MCH (25.6-32.2) pg MCHC (32.2-35.5) g/dL RDW (11.7-14.4) % Plt Count (182-369) x10^3/uL MPV (9.4-12.3) fL Gran % (34.0-71.1) % Immature Gran % (Auto) (0.001-0.429) % Nucleat RBC Rel Count (0.00-0.2) % Eos # (Auto) (0.04-0.36) x10^3/uL Immature Gran # (Auto) (0.001-0.031) x10^3u/L Absolute Lymphs (auto) (1.18-3.74) x10^3/uL Absolute Monos (auto) (0.24-0.86) x10^3/uL Absolute Nucleated RBC (0.00-0.012) x10^3u/L Lymphocytes % (19.3-51.7) % Monocytes % (4.7-12.5) % Eosinophils % (0.7-5.8) % Basophils % (0.1-1.2) % Absolute Granulocytes (1.56-6.13) x10^3/uL Basophils # (0.01-0.08) x10^3/uL Sodium (135-145) mmol/L Potassium (3.5-5.1) mmol/L Chloride (98-107) mmol/L Carbon Dioxide (22-30) mmol/L Anion Gap (5-15) MEQ/L BUN (7-17) mg/dL Creatinine (0.52-1.04) mg/dL Estimated GFR ML/MIN Glucose (74-106) mg/dL Calcium (8.4-10.2) mg/dL Magnesium (1.6-2.3) mg/dL Total Bilirubin (0.2-1.3) mg/dL AST (14-36) U/L ALT (0-35) U/L Alkaline Phosphatase (38-126) U/L Troponin I (0.000-0.033) ng/mL NT-Pro-B Natriuret Pep 1450 (<300) pg/mL Serum Total Protein (6.3-8.2) g/dL Albumin (3.5-5.0) g/dL Amylase (30-110) U/L Lipase (23-300) U/L Urine Color Yellow (Yellow) Urine Appearance Clear (Clear) Urine pH 8.0 (4.6-8.0) Ur Specific [place] 1.015 (1.005-1.030) Urine Protein 100 A (Negative) Urine Glucose (UA) Negative (Negative) mg/dL Urine Ketones Negative (Negative) Urine Blood Negative (Negative) Urine Nitrite Negative (Negative) Urine Bilirubin Negative (Negative) Urine Urobilinogen 1.0 A (0.2) mg/dL Ur Leukocyte Esterase Negative (Negative) U Hyaline Cast (Auto) NONE SEEN (0-2) /LPF Urine Microscopic RBC 0-2 (0-5) /HPF Urine Microscopic WBC 0-2 (0-5) /HPF Ur Epithelial Cells None Seen (None Seen) /HPF Urine Bacteria None Seen (None Seen) /HPF Urine Culture Reflexed YES (NO) Influenza Type A Ag NEGATIVE (NEGATIVE) Influenza Type B Ag NEGATIVE (NEGATIVE) RSV (PCR) NEGATIVE (NEGATIVE) SARS-CoV-2 (PCR) NEGATIVE (NEGATIVE) 02/27/24 02/27/24 02/27/24 Range/Units 01:15 EST 01:15 EST 01:15 EST WBC 9.2 (3.98-10.04) x10^3/uL RBC 3.86 L (3.93-5.22) x10^6/uL Hgb 13.7 (11.2-15.7) g/dL Hct 42.4 (34.1-44.9) % MCV 109.8 H (79.4-94.8) fL MCH 35.5 H (25.6-32.2) pg MCHC 32.3 (32.2-35.5) g/dL RDW 12.8 (11.7-14.4) % Plt Count 193 (182-369) x10^3/uL MPV 10.9 (9.4-12.3) fL Gran % 83.7 H (34.0-71.1) % Immature Gran % (Auto) 0.4 (0.001-0.429) % Nucleat RBC Rel Count 0.0 (0.00-0.2) % Eos # (Auto) 0.04 (0.04-0.36) x10^3/uL Immature Gran # (Auto) 0.04 H (0.001-0.031) x10^3u/L Absolute Lymphs (auto) 0.83 L (1.18-3.74) x10^3/uL Absolute Monos (auto) 0.51 (0.24-0.86) x10^3/uL Absolute Nucleated RBC 0.00 (0.00-0.012) x10^3u/L Lymphocytes % 9.1 L (19.3-51.7) % Monocytes % 5.6 (4.7-12.5) % Eosinophils % 0.4 L (0.7-5.8) % Basophils % 0.8 (0.1-1.2) % Absolute Granulocytes 7.66 H (1.56-6.13) x10^3/uL Basophils # 0.07 (0.01-0.08) x10^3/uL Sodium 136 (135-145) mmol/L Potassium 4.1 (3.5-5.1) mmol/L Chloride 100 (98-107) mmol/L Carbon Dioxide 20 L (22-30) mmol/L Anion Gap 19.1 H (5-15) MEQ/L BUN 53 H (7-17) mg/dL Creatinine 3.03 H (0.52-1.04) mg/dL Estimated GFR 17.1 ML/MIN Glucose 135 H (74-106) mg/dL Calcium 9.5 (8.4-10.2) mg/dL Magnesium 2.2 (1.6-2.3) mg/dL Total Bilirubin 0.70 (0.2-1.3) mg/dL AST 52 H (14-36) U/L ALT 44 H (0-35) U/L Alkaline Phosphatase 151 H (38-126) U/L Troponin I < 0.012 (0.000-0.033) ng/mL NT-Pro-B Natriuret Pep (<300) pg/mL Serum Total Protein 8.3 H (6.3-8.2) g/dL Albumin 4.3 (3.5-5.0) g/dL Amylase 128 H (30-110) U/L Lipase 133 (23-300) U/L Urine Color (Yellow) Urine Appearance (Clear) Urine pH (4.6-8.0) Ur Specific [place] (1.005-1.030) Urine Protein (Negative) Urine Glucose (UA) (Negative) mg/dL Urine Ketones (Negative) Urine Blood (Negative) Urine Nitrite (Negative) Urine Bilirubin (Negative) Urine Urobilinogen (0.2) mg/dL Ur Leukocyte Esterase (Negative) U Hyaline Cast (Auto) (0-2) /LPF Urine Microscopic RBC (0-5) /HPF Urine Microscopic WBC (0-5) /HPF Ur Epithelial Cells (None Seen) /HPF Urine Bacteria (None Seen) /HPF Urine Culture Reflexed (NO) Influenza Type A Ag (NEGATIVE) Influenza Type B Ag (NEGATIVE) RSV (PCR) (NEGATIVE) SARS-CoV-2 (PCR) (NEGATIVE) - Progress Progress: re-examined Air Movement: fair Progress Note: 02/27/24 00:27 My medical decision making and the assignment of at least moderate complexity to this patient's medical issue today is based on review of the patient's past medical history, review of the patient's medication list, reviewed patient drug allergy list, history present illness and physical findings on examination. The workup in this patient includes placement of a intravenous line, CBC, CMP, magnesium level, troponin level, twelve-lead EKG, chest x-ray, viral swabs, monotest, BNP. We will also obtain a urinalysis. Differential diagnosis includes but is not limited to myocardial infarction, pneumonia, congestive heart failure, COPD exacerbation, acute intra- abdominal/pelvic abnormality, acute intracranial abnormality 02/27/24 03:04 I interpreted the patient's laboratory data results. The patient has chronic renal failure on dialysis and the renal function reveals that. She has a normal troponin level. When I interpret her labs I do not see anything acute or emergent given this patient's medical history. The preliminary report of this patient's chest x-ray was interpreted by me. When compared to similar study dated 05/02/2018 today's chest x-ray is not as good of an inspiratory film. There is a similar, persistent right midlung spiculated calcified mass. The right base shows bronchial markings versus a telectasis. The CT scan of the abdomen and pelvis was interpreted by the radiologist and I reviewed the impression. The impression shows no acute abnormalities in the abdomen or pelvis. There is a small left kidney with decreased cortical thickness consistent with renal parenchymal disease. There is no evidence of appendicitis. 02/27/24 03:[address] scan of the head without contrast was interpreted by the radiologist and I reviewed the impression. The impression shows mild cortical involutional changes. No evidence of established infarction, intracranial or extracranial hemorrhage. 02/27/24 03:22 The patient is much more awake and alert. She does feel exhausted. Her systolic blood pressures in the 170s which is normal for her. She has no chest pain and has no abdominal pain at this time. 02/27/24 04:58 The patient was still mildly confused but alert. She does feel weak. She is hemodynamically stable. Her daughter does not feel comfortable taking her home at this time. Per the family request we contacted [facility]. Dr. Pineda, the hospitalist on-call at this time, returned our call and I reviewed the patient past medical history, chief complaint, workup performed and the results. She accepts the patient in transfer. The transfer center stated that there are beds available but they cannot give us an exact time of transfer however it will likely be later this morning or possibly early afternoon. Blood Culture(s) Obtained: Yes Antibiotics given: No Counseled pt/family regarding: lab results, diagnosis, rad results Medical Desision Making - Independent Historian Additional History obtained from: Family - Diagnostic Testing Diagnostic test were ordered, analyzed, and reviewed by me: Yes Radiological Interpretation: Interpreted by me, Reviewed by me, Teleradiologist Report - Risk of complications The pt has a high risk of morbidity or mortality based on: Decision regarding hospitilization or escalation of hosp level of care - Departure Departure Disposition: Transfer Clinical Impression: Coughing, Episode of gagging, Weakness Condition: Stable Critical Care Time: No Referrals: YU LATHAM MD [Primary Care Provider] - Follow up/PCP as directed
[2024-02-27 00:53] VITALS: TEMP 97.1
[2024-02-27 01:05] LABS: INFLUENZA A NEGATIVE (NEGATIVE); INFLUENZA B NEGATIVE (NEGATIVE); RESPIRATORY SYNCTIAL VIRUS NEGATIVE (NEGATIVE); SARS-CoV-2 Xpert Express NEGATIVE (NEGATIVE)
[2024-02-27] MEDS ORDERED: Zofran 4 MG/2 ML VIAL ONE (01:15)
[2024-02-27] MEDS: Zofran 4 MG/2 ML VIAL IV ONE (01:17)
[2024-02-27 01:28] LABS: Absolute Neutrophil Ct (ANC) 7.66 x10^3/uL (1.56-6.13); BASOPHIL % 0.8 % (0.1-1.2); Basophil (Absolute #) 0.07 x10^3/uL (0.01-0.08); Eosinophil % 0.4 % (0.7-5.8); Eosinophil (Absolute #) 0.04 x10^3/uL (0.04-0.36); Hematocrit 42.4 % (34.1-44.9); Hemoglobin 13.7 g/dL (11.2-15.7); IMMATURE GRAN # 0.04 x10^3u/L (0.001-0.031); IMMATURE GRAN % 0.4 % (0.001-0.429); Lymphocyte (Absolute #) 0.83 x10^3/uL (1.18-3.74); Lymphocytes % 9.1 % (19.3-51.7); Mean Cell Volume 109.8 fL (79.4-94.8); Mean Corpuscular Hemoglobin 35.5 pg (25.6-32.2); Mean Corpuscular Hgb Concent. 32.3 g/dL (32.2-35.5); Mean Platelet Volume 10.9 fL (9.4-12.3); Monocyte (Absolute #) 0.51 x10^3/uL (0.24-0.86); Monocytes % 5.6 % (4.7-12.5); Neutrophil % 83.7 % (34.0-71.1); Platelet Count 193 x10^3/uL (182-369); Red Blood Count 3.86 x10^6/uL (3.93-5.22); Red Cell Distribution Width 12.8 % (11.7-14.4); White Blood Count 9.2 x10^3/uL (3.98-10.04)
--- NOTE | 2024-02-27 01:42 | XRAY ---
CLINICAL HISTORY: Infusion COMPARISON: None. TECHNIQUE: Axial noncontrast CT scan of the brain was performed from the skull base to the high parietal region with coronal and sagittal reformats. One of the following dose reduction techniques were utilized for this exam: Automated exposure control, adjustment of the mA and/or kV according to patient size, use of iterative reconstruction. TDI: 53.92mGy, DLP: 1016.25mGy*cm. FINDINGS: The visualized brain parenchyma shows a normal appearance. No focal parenchymal abnormalities are demonstrated. Hardy-white matter differentiation is maintained. No midline shifts or deformity. No intracerebral or extra axial hematoma. Normal size and configuration of the cerebral ventricles. Widened cortical sulci and extra-axial CSF spaces Normal CT appearance of the posterior fossa structures namely the cerebellar hemispheres, brainstem, and cerebellar peduncles. The cerebello-pontine angles are clear. The osseous structures in the skull base are unremarkable. No definite calvarium fractures. Scanned paranasal sinuses are clear. IMPRESSION: 1. Mild cortical involutional changes 2. No evidence of established infarction, intracranial or extracranial hemorrhage. Early changes of stroke may not be detected on a CT scan. If strong clinical suspicion of stroke then suggest MRI with diffusion-weighted imaging. Electronically Signed by: Kelsi Rowe MD. (02/27/2024 01:37:36 EDT)
[2024-02-27 01:43] LABS: ALBUMIN 4.3 g/dL (3.5-5.0); ANION GAP 19.1 MEQ/L (5-15); BILIRUBIN,TOTAL 0.7 mg/dL (0.2-1.3); Calcium 9.5 mg/dL (8.4-10.2); Creatinine 1 3.03 mg/dL (0.52-1.04); EST GLOMERULAR FILTRATION RATE 17.1 ML/MIN; MAGNESIUM 2.2 mg/dL (1.6-2.3); Potassium 4.1 mmol/L (3.5-5.1); Total Protein 8.3 g/dL (6.3-8.2)
[2024-02-27 02:02] LABS: Appearance Clear (Clear); Bacteria None Seen /HPF (None Seen); Bilirubin Negative (Negative); Blood Negative (Negative); Epithelial Cells None Seen /HPF (None Seen); Glucose, Urine Negative (Negative); Hyaline Casts NONE SEEN /LPF (0-2); Ketones Negative (Negative); Leukocyte Esterase Negative (Negative); Nitrite Negative (Negative); Protein,Urine Dip 100 (Negative); RBC 0-2 /HPF (0-5); Specific Gravity 1.015 (1.005-1.030); WBC 0-2 /HPF (0-5)
--- NOTE | 2024-02-27 02:50 | XRAY ---
CLINICAL HISTORY: Vomiting; ABD pain COMPARISON: None. TECHNIQUE: CT scan of the abdomen and pelvis was performed without contrast. Coronal and sagittal reconstructive images were also obtained. One of the following dose reduction techniques were utilized for this exam: Automated exposure control, adjustment of the mA and/or kV according to patient size, use of iterative reconstruction. CDI: 17.90mGy, DLP: 106.82mGy*cm. FINDINGS: Atelectatic bands at both lower lung lobes. Abdomen: The liver is normal in size. No focal or diffuse parenchymal abnormality. The portal vein, intrahepatic biliary radicals and the bile ducts are normal. Status postcholecystectomy. Small size of the left kidney with decreased cortical thickness, suggestive of renal parenchymal disease. Normal size of the right kidney. No stones or obstructive uropathy. The spleen, pancreas, and adrenal glands are unremarkable. The ascending colon, the transverse colon, the descending colon, visualized small bowel loops are unremarkable. There is no evidence of significant enlargement of the mesenteric or retroperitoneal lymph nodes. Aortic atherosclerotic calcification. No evidence of appendicitis. Pelvis: The urinary bladder is unremarkable. The rectosigmoid colon is unremarkable. Uterus and adnexa are unremarkable. No evidence of pelvic lymphadenopathy. Lumbar vertebral spondylotic changes. IMPRESSION: 1. No acute abdominal or pelvic pathology. 2. Small size of the left kidney with decreased cortical thickness, suggestive of renal parenchymal disease. 3. No evidence of appendicitis. Electronically Signed by: Kelsi Rowe MD. (02/27/2024 02:45:51 EST)
[2024-02-27] MEDS ORDERED: Sodium Chloride 0.9% 250 ML 250 ML IV ONE (03:39)
[2024-02-27] MEDS: Sodium Chloride 0.9% 250 ML 250 ML IV SCH (03:40)
[2024-02-27 04:58] VITALS: O2SAT 100
[2024-02-27] MEDS ORDERED: SUBLIMAZE 100 MCG/2 ML ONE (06:15)
[2024-02-27] MEDS: SUBLIMAZE 100 MCG/2 ML IV ONE (06:17)
[2024-02-27] MEDS ORDERED: Ativan 2 MG/1 ML VIAL IV ONE (06:47)
[2024-02-27] MEDS ORDERED: Sodium Chloride 0.9% 250 ML 250 ML IV SCH (07:00)
--- NOTE | 2024-02-27 07:55 | XRAY ---
Indication: Cough. Short of breath. Comparison: May 02, 2018 Portable chest remains hyperinflated with grossly stable right mid lung calcified granuloma and minimal left base subsegmental atelectasis/scarring. Heart not enlarged. Bony thorax intact. No new/acute findings.
[2024-02-27] MEDS: hydroDIURIL 25 MG PO SCH (08:27)
[2024-02-27] MEDS: Aldactone 25 MG PO ONE (08:27)
[2024-02-27] MEDS ORDERED: NORVASC 5 MG ONE (08:28)
[2024-02-27] MEDS: NORVASC 5 MG PO ONE (08:29)
[2024-02-27 09:07] VITALS: PULSE 52; RESP 16
[2024-02-27 09:36] VITALS: BP 195/98
== END 2024-02-27 09:39 | disposition short-term general hospital (02) ==
LOC: ED 23:42
DX: R05.1 Acute cough (principal); R13.10 Dysphagia, unspecified; R53.1 Weakness; I12.0 Hypertensive chronic kidney disease with stage 5 chronic kidney disease or end stage renal disease; N18.6 End stage renal disease; R41.0 Disorientation, unspecified; Z99.2 Dependence on renal dialysis; Z79.899 Other long term (current) drug therapy; Z72.0 Tobacco use
CPT/HCPCS: 0241U; 36000; 36415; 70450; 71045; 74176; 80053; 81001; 82150; 83690; 83735; 83880; 84443; 84484; 85025; 87040; 87086; 93005; 94760; 96374; 96375; 99285; J2405; J3010; A9270-GY